=== PATIENT | male | born 1950 | race Caucasian/White ===

== ENCOUNTER 2017-07-24 11:52 | Emergency (ER) | payer OTHER ==
[2017-07-24] MEDS ORDERED: ASPIRIN CHEW 81 MG TABLET ONE (13:10)
--- NOTE | 2017-07-24 15:06 | XRAY Preliminary Report ---
Exam: XR HIP W/PELVIS 2-3V RT IMPRESSION: No acute bony abnormality. [facility] SITE ID: [id number]
--- NOTE | 2017-07-24 15:12 | XRAY Report ---
EXAM: RIGHT HIP AND PELVIS RADIOGRAPHY EXAM DATE: 07/24/2017 02:11 PM. HISTORY: Pain right hip after falling. COMPARISONS: 02/20/2014. TECHNIQUE: 2 views of the pelvis and 1 view of the hip. FINDINGS: Bones: Normal. No fracture or bone lesion. Joints: Remote ORIF of a right subcapital fracture. Remote reconstruction of the right ischium and ac etabulum. Surgical hardware intact without migration. Mild degenerative changes both hips. Moderate to marked degenerative disk disease L4-L5 and L5-S1. Normal sacroiliac joints. Soft Tissues: Normal. No soft tissue swelling. IMPRESSION: No acute bony abnormality. [facility] Referring Provider Line: [phone] SITE ID: [id number]
--- NOTE | 2017-07-24 15:41 | ED Physician Documentation ---
PD HPI LOWER EXT INJURY - Stated complaint Stated Complaint: LOWER BACK/HIP PX - Chief complaint Chief Complaint: Ext Problem - History obtained from History obtained from: Patient - History of Present Illness PD HPI LOW EXT INJURY LOCATION: Right, Hip Type of injury: Fall Where injury occurred: Home Timing - onset: How many weeks ago (2 or 3) Associated symptoms: No: Weakness, Numbness, Swelling Similar symptoms before: Diagnosis (Prior h/o right hip fx x 2; S/P ORIF) - Additional information Additional information: The patient is a 66-year-old male who presents with pain in his right hip. He fell 2 or 3 weeks ago when he slipped on the floor, impacting his right hip. He has had right hip discomfort since that time. He underwent chiropractic adjustment, with no significant improvement. His pain became worse yesterday after moving 5 gallon jugs of water. He also complains of pain in his lower back. He has a history of right hip fracture and pelvic fracture for which he is status post ORIF. He also is status post ORIF of a right femoral neck fracture more recently. Review of systems is otherwise negative. Review of Systems Constitutional: denies: Fever Nose: denies: Congestion Throat: denies: Sore throat Cardiac: denies: Chest pain / pressure Respiratory: denies: Dyspnea, Cough GI: denies: Abdominal Pain, Nausea, Vomiting : denies: Dysuria Skin: denies: Rash Musculoskeletal: reports: Back pain (lower back.), Joint pain (right hip.). denies: Extremity swelling Neurologic: denies: Focal weakness, Numbness, Headache PD PAST MEDICAL HISTORY - Past Medical History Past Medical History: Yes Cardiovascular: None Respiratory: Pneumonia, Shortness of breath, Other Neuro: Head injury Endocrine/Autoimmune: HyPOthyroidism Psych: Anxiety Musculoskeletal: Other - Past Surgical History Past Surgical History: Yes General: Appendectomy Ortho: Other (ORIF right femoral neck fracture; ORIF right pelvic acetabular fracture.) Neuro: Other HEENT: Rhinoplasty - Present Medications Home Medications: Ambulatory Orders Medication Instructions Recorded Confirmed Levothyroxine Sodium 1 tab PO DAILY 07/24/17 07/24/17 Prazosin HCl 1 tab PO DAILY 07/24/17 07/24/17 Sertraline HCl 1 tab PO DAILY 07/24/17 07/24/17 - Allergies Allergies/Adverse Reactions: Allergies Allergy/AdvReac Type Severity Reaction Status Date / Time No Known Drug Allergies Allergy Verified 07/24/17 13:28 - Social History Does the pt smoke?: No Smoking Status: Never smoker Does the pt drink ETOH?: No Does the pt have substance abuse?: No - Immunizations Immunizations are current?: Yes Immunizations: TDAP current <10years - POLST Patient has POLST: No PD ED PE NORMAL - Vitals Vital signs reviewed: Yes (normal) - General General: Alert and oriented X 3, Well developed/nourished, Other (Ambulates without assistance.) - HEENT HEENT: Atraumatic - Neck Neck: No bony TTP - Cardiac Cardiac: RRR, No murmur - Respiratory Respiratory: No respiratory distress, Clear bilaterally - Abdomen Abdomen: Soft, Non tender - Back Back: No CVA TTP, No spinal TTP, Other (There is mild tenderness to palpation in the right paralumbar region, without tenderness over the spinous processes.) - Derm Derm: No rash - Extremities Extremities: No edema, No calf tenderness / cord, Other (The patient demonstrates flexion at the hip to 70, and full extension. Internal and external rotation are tolerated with only mild discomfort. There is no deformity, and no ecchymosis. Distal neurovascular is intact. He is able to bear weight and ambulate.) - Neuro Neuro: Alert and oriented X 3, No motor deficit, No sensory deficit Results - Vitals Vitals: Oxygen O2 Source [With Activity] Room air O2 Source [Without Activity] Room air O2 Source Room air - Rads (name of study) Right hip/pelvis Radiology: Prelim report reviewed, EMP read contemporaneously, See rad report ( No acute bony abnormality. Remote ORIF of a right subcapital fracture. Remote reconstruction of the right ischium and acetabulum. Surgical hardware intact without migration. Mild degenerative changes of both hips. Moderate to marked degenerative disc disease L4-L5 and L5-S1. Normal sacroiliac joints.) PD MEDICAL DECISION MAKING - ED course Complexity details: reviewed old records, reviewed results, re-evaluated patient , considered differential, d/w patient, d/w family ED course: The patient's presentation is significant for contusion of the right hip secondary to mechanical fall. There is no evidence of fracture on x-ray examination. I discussed with him and his daughters the results of the imaging study, symptomatic treatment and outpatient follow-up, as well as potentially worrisome signs or symptoms that should prompt reevaluation in the emergency department. Departure - Departure Disposition: 01 Home, Self Care Clinical Impression: H/O fracture of right hip Fall Qualifiers: Encounter type: initial encounter Qualified Code(s): W19.XXXA - Unspecified fall, initial encounter Contusion of right hip Qualifiers: Encounter type: initial encounter Qualified Code(s): S70.01XA - Contusion of right hip, initial encounter Condition: Stable Instructions: ED Contusion Hip Follow-Up: [facility] [Provider Group] Comments: You can use Tylenol, up to 650 mg 3 times daily if needed for pain or discomfort. Let pain be your guide to activity level. Follow up with your primary physician within 2 weeks. Call to schedule appointment. Return to the emergency department if you develop increasing pain, or otherwise worsening symptoms. Discharge Date/Time: 07/24/17 15:55
[2017-07-24 16:06] VITALS: BP 101/58
== END 2017-07-24 15:55 | disposition home or self-care (01) ==
LOC: ED 11:52
DX: S70.01XA Contusion of right hip, initial encounter (principal); W01.0XXA Fall on same level from slipping, tripping and stumbling without subsequent striking against object, initial encounter; Y92.019 Unspecified place in single-family (private) house as the place of occurrence of the external cause; E03.9 Hypothyroidism, unspecified
CPT/HCPCS: 99283

== ENCOUNTER 2017-12-01 13:38 | Outpatient (CLI) | payer OTHER | END 2017-12-01 13:39 | disposition critical access hospital (66) | LOC: EMS 13:38 | PROVIDERS: ATTEND Surgery | DX: R55 Syncope and collapse (principal) | CPT/HCPCS: A0425; A0427 ==

== ENCOUNTER 2017-12-01 14:06 | Emergency (ER) | payer OTHER ==
--- NOTE | 2017-12-01 14:41 | ED Physician Documentation ---
PD HPI SYNCOPE - Stated complaint Stated Complaint: SYNCOPE - Chief complaint Chief Complaint: General - History obtained from History obtained from: Patient - History of Present Illness Witnessed: Witnessed (He did very hard [employer] workout yesterday and felt like he did not drink any fluids afterwards or this morning. He was working hard getting parts for a project. Mcmillan lightheaded at 1330 and off balance. Per friend he then syncopized multiple times.There is no associated chest pain or trouble breathing. He feels back to normal on my examination.) Review of Systems Ten Systems: 10 systems reviewed and negative Constitutional: denies: Fever, Chills Cardiac: denies: Chest pain / pressure, Palpitations Respiratory: denies: Dyspnea, Cough GI: denies: Abdominal Pain PD PAST MEDICAL HISTORY - Past Medical History Past Medical History: Yes Cardiovascular: None Respiratory: Pneumonia, Shortness of breath, Other Endocrine/Autoimmune: HyPOthyroidism Psych: Anxiety Musculoskeletal: Other - Past Surgical History Past Surgical History: Yes General: Appendectomy Ortho: Other Neuro: Other HEENT: Rhinoplasty - Present Medications Home Medications: Ambulatory Orders Medication Instructions Recorded Confirmed Levothyroxine Sodium 1 tab PO DAILY 07/24/17 07/24/17 Prazosin HCl 1 tab PO DAILY 07/24/17 07/24/17 Sertraline HCl 1 tab PO DAILY 07/24/17 07/24/17 - Allergies Allergies/Adverse Reactions: Allergies Allergy/AdvReac Type Severity Reaction Status Date / Time No Known Drug Allergies Allergy Verified 07/24/17 13:28 - Social History Does the pt smoke?: No Smoking Status: Never smoker Does the pt drink ETOH?: No Does the pt have substance abuse?: No - Immunizations Immunizations are current?: Yes Immunizations: TDAP current <10years - POLST Patient has POLST: No PD ED PE NORMAL - Vitals Vital signs reviewed: Yes - General General: Alert and oriented X 3, No acute distress - HEENT HEENT: PERRL, EOMI, Ears normal, Moist mucous membranes, Pharynx benign - Neck Neck: Supple, no meningeal sign, No bony TTP - Cardiac Cardiac: RRR, No murmur - Respiratory Respiratory: No respiratory distress, Clear bilaterally - Abdomen Abdomen: Normal bowel sounds, Soft, Non tender - Back Back: No CVA TTP, No spinal TTP - Derm Derm: Normal color, Warm and dry - Extremities Extremities: No edema, No calf tenderness / cord - Neuro Neuro: Alert and oriented X 3, Normal speech, Other (NIHSS zero.) Eye Opening: Spontaneous Motor: Obeys Commands Verbal: Oriented GCS Score: 15 - Psych Psych: Normal mood, Normal affect Results - Vitals Vitals: Vital Signs - 24 hr 12/01/17 12/01/17 14:19 15:30 Temperature 36.4 C L 36.5 C Heart Rate 61 59 L Respiratory 16 23 Rate Blood Pressure 100/75 124/76 O2 Saturation 100 100 Oxygen O2 Source [] Room air O2 Source [] Room air O2 Source Room air - EKG (time done) 1444 Rate: Rate (enter#) (55) Rhythm: NSR [place]: Normal Intervals: Normal [place] QRS: Normal Ischemia: Normal ST segments Computer interpretation: Agree with computer - Labs Labs: Laboratory Tests 12/01/17 12/01/17 12/01/17 14:58 14:58 14:58 WBC 6.0 RBC 4.27 L Hgb 14.3 Hct 41.0 L MCV 96.1 H MCH 33.5 H MCHC 34.9 RDW 13.3 Plt Count 219 MPV 7.4 Neut # 4.6 Lymph # 0.8 L [place] # 0.4 Eos # 0.1 Baso # 0.1 Absolute Nucleated RBC 0.00 Nucleated RBC % 0.0 Sodium 137 Potassium 4.0 Chloride 106 Carbon Dioxide 25 Anion Gap 6.0 BUN 22 H Creatinine 0.8 Estimated GFR (MDRD) 96 Glucose 93 Calcium 8.3 L Total Creatine Kinase 398 H Troponin I < 0.04 - Rads (name of study) CT Head Radiology: EMP read contemporaneously (Old findings and chronic sinusitis which is asymptomatic.) PD MEDICAL DECISION MAKING - ED course ED course: 66-year-old gentleman after a heavy workout yesterday and then poor oral fluid intake presents after a premonition all syncopal episode now feeling back to normal. His diagnostics are without acute abnormality in he had a negative stroke scale and normal gait in the department. He very much wanted to be discharged. Departure - Departure Disposition: 01 Home, Self Care Clinical Impression: Syncope and collapse Condition: Good Record reviewed to determine appropriate education?: Yes Instructions: ED Dizziness Syncope Fainting W Pre Comments: Call your doctor to arrange a follow-up appointment, make the next available appointment. In the interim, return anytime if worse or if new symptoms develop.
[2017-12-01] MEDS ORDERED: SODIUM CHLORIDE 0.9% 1,000 ML IV ONE (14:45)
[2017-12-01 15:08] LABS: BASOPHILS # (AUTO) 0.1 10^3/uL (0.0-0.1); BASOPHILS % (AUTO) 1.8 %; EOSINOPHILS # (AUTO) 0.1 10^3/uL (0.0-0.7); EOSINOPHILS % (AUTO) 1.3 %; HGB - HEMOGLOBIN 14.3 g/dL (14.0-18.0); LYMPHOCYTES # (AUTO) 0.8 10^3/uL (1.5-3.5); LYMPHOCYTES % (AUTO) 13.1 %; MEAN CORPUSCULAR HEMOGLOBIN 33.5 pg (27.0-31.0); MEAN CORPUSCULAR HGB CONC 34.9 g/dL (32.0-36.0); MEAN CORPUSCULAR VOLUME 96.1 fL (80.0-94.0); MEAN PLATELET VOLUME 7.4 fL (7.4-11.4); MONOCYTES # (AUTO) 0.4 10^3/uL (0.0-1.0); MONOCYTES % (AUTO) 6.5 %; NEUTROPHILS # (AUTO) 4.6 10^3/uL (1.5-6.6); NEUTROPHILS % (AUTO) 77.3 %; PLT - PLATELET COUNT 219 10^3/uL (130-450); RED BLOOD COUNT 4.27 10^6/uL (4.70-6.10); RED CELL DISTRIBUTION WIDTH 13.3 % (12.0-15.0)
[2017-12-01 15:18] LABS: CALCIUM 8.3 mg/dL (8.5-10.3); CREATININE 0.8 mg/dL (0.6-1.2)
--- NOTE | 2017-12-01 15:30 | CT Preliminary Report ---
Exam: CT HEAD W/O IMPRESSION: 1. No intracranial hemorrhage, mass effect, or current CT evidence of acute CVA. 2. Prior left temporal craniotomy. 3. Increased moderate bilateral ethmoid and left sphenoid sinus mucosal thickening consistent with si nusitis. Mastoids and middle ears are clear. [facility] SITE ID: [id number]
--- NOTE | 2017-12-01 15:30 | CT Report ---
EXAM: CT HEAD EXAM DATE: 12/01/2017 03:20 PM. CLINICAL HISTORY: Syncope off balance. COMPARISON: 02/19/2014. TECHNIQUE: Multiaxial CT images were obtained from the foramen magnum to the vertex. Reformats: Coron al. IV contrast: None. In accordance with CT protocol optimization, one or more of the following dose reduction techniques w ere utilized for this exam: automated exposure control, adjustment of mA and/or KV based on patient s ize, or use of iterative reconstructive technique. FINDINGS: Parenchyma: No intraparenchymal hemorrhage. No evidence of mass, midline shift, or CT findings of inf arction. Escobar-white differentiation is distinct. Extraaxial Spaces: Normal for age. No subdural or epidural collections identified. Ventricles: Normal in size and position. Sinuses and Orbits: Moderate bilateral maxillary and left sphenoid sinus mucosal thickening, increase d. The other visualized paranasal sinuses are essentially clear as are mastoids and middle ears. Bones: Prior left temporal craniotomy, as before. Other: Mild calcification in bilateral cavernous internal carotid arteries and proximal intracranial left vertebral artery. IMPRESSION: 1. No intracranial hemorrhage, mass effect, or current CT evidence of acute CVA. 2. Prior left temporal craniotomy. 3. Increased moderate bilateral ethmoid and left sphenoid sinus mucosal thickening consistent with si nusitis. Mastoids and middle ears are clear. [facility] Referring Provider Line: [phone] SITE ID: [id number]
[2017-12-01 15:48] VITALS: BP 104/73
== END 2017-12-01 15:54 | disposition home or self-care (01) ==
LOC: EDUNIT# → ED 14:06
DX: R55 Syncope and collapse (principal); E03.9 Hypothyroidism, unspecified
CPT/HCPCS: 36415; 70450; 80048; 82550; 84484; 85025; 93005; 99283

== ENCOUNTER 2018-10-22 07:05 | Outpatient (CLI) | payer OTHER ==
--- NOTE | 2018-10-22 09:08 | CT Report ---
Reason: CHRONIC MAXILLARY SINUSITIS Procedure Date: 10/22/2018 Accession Number: [id number] / [id number] Procedure: CT - Sinuses CPT Code: FULL RESULT: EXAM: CT SINUS EXAM DATE: 10/22/2018 07:22 AM. HISTORY: Chronic maxillary sinusitis. COMPARISONS: HEAD W/O 12/01/2017 3:13 PM. TECHNIQUE: Routine multi-axial CT imaging performed through the sinuses. Iodinated IV contrast: None. Reconstructions: Multiplanar reformats. In accordance with CT protocol optimization, one or more of the following dose reduction techniques were utilized for this exam: automated exposure control, adjustment of mA and/or KV based on patient size, or use of iterative reconstructive technique. FINDINGS: Frontal: Moderate bilateral frontal mucosal thickening slightly improved compared to prior exam. Ethmoid: Mild right posterior ethmoid mucosal thickening. Ethmoid sinuses otherwise unremarkable. Maxillary: Minimal dependent right maxillary mucosal thickening. Left maxillary sinus is clear. Sphenoid: Right sphenoid sinus is clear. Moderate left sphenoid mucosal thickening slightly improved compared to prior exam. Drainage Pathways: Bilateral infundibula are widely patent following surgery. Patent frontal recesses. Other: No evidence of acute sinusitis. Nasal Cavity: No evidence of septal deviation, polyp or mass. Incidental small left middle turbinate new bullosa which is a common anatomic variant. Osseous Structures: Unremarkable. Orbits: Unremarkable. Other: None. IMPRESSION: 1. Moderate bilateral frontal mucosal thickening slightly improved. 2. Following surgery, both maxillary infundibula are widely patent. Minimal dependent right maxillary mucosal thickening. Left maxillary sinus is clear. 3. Slightly improved moderate left sphenoid mucosal thickening. 4. Otherwise negative exam. [facility]
== END 2018-10-22 07:06 | disposition home or self-care (01) ==
LOC: DI 07:05
PROVIDERS: ATTEND Physician Assistant
DX: J32.0 Chronic maxillary sinusitis (principal)
CPT/HCPCS: 70486

== ENCOUNTER 2018-10-25 07:40 | Outpatient (CLI) | payer OTHER ==
[2018-10-25 14:21] LABS: BASOPHILS # (AUTO) 0.1 10^3/uL (0.0-0.1); BASOPHILS % (AUTO) 1.2 %; EOSINOPHILS # (AUTO) 0.2 10^3/uL (0.0-0.7); EOSINOPHILS % (AUTO) 4.2 %; HGB - HEMOGLOBIN 15.5 g/dL (14.0-18.0); LYMPHOCYTES # (AUTO) 1.2 10^3/uL (1.5-3.5); LYMPHOCYTES % (AUTO) 28.5 %; MEAN CORPUSCULAR HEMOGLOBIN 32.2 pg (27.0-31.0); MEAN CORPUSCULAR HGB CONC 33.4 g/dL (32.0-36.0); MEAN CORPUSCULAR VOLUME 96.5 fL (80.0-94.0); MEAN PLATELET VOLUME 7.8 fL (7.4-11.4); MONOCYTES # (AUTO) 0.4 10^3/uL (0.0-1.0); MONOCYTES % (AUTO) 9.5 %; NEUTROPHILS # (AUTO) 2.4 10^3/uL (1.5-6.6); NEUTROPHILS % (AUTO) 56.6 %; PLT - PLATELET COUNT 243 10^3/uL (130-450); RED BLOOD COUNT 4.82 10^6/uL (4.70-6.10); RED CELL DISTRIBUTION WIDTH 13.5 % (12.0-15.0); WHITE BLOOD COUNT 4.3 x10^3/uL (4.8-10.8)
[2018-10-25 14:46] LABS: ALBUMIN 4.1 g/dL (3.2-5.5); ALBUMIN/GLOBULIN RATIO 1.4 (1.0-2.2); ALKALINE PHOSPHATASE 100 IU/L (42-121); ALT ALANINE AMINOTRANSFERASE 23 IU/L (10-60); AST ASPARTATE AMINOTRANSFERASE 28 IU/L (10-42); BILIRUBIN,TOTAL 0.7 mg/dL (0.2-1.0); BUN - BLOOD UREA NITROGEN 27 mg/dL (6-20); CARBON DIOXIDE - CO2 31 mmol/L (21-32); CHLORIDE 105 mmol/L (101-111); CHOL/HDL RATIO 2.9 (<5.0); CHOLESTEROL 215 mg/dL; CREATININE 0.9 mg/dL (0.6-1.2); GFR - MDRD 84 (>89); GLUCOSE 92 mg/dL (70-100); HDL CHOLESTEROL 74 mg/dL; LDL CHOLESTEROL,CALCULATED 124 mg/dL; LDL/HDL RATIO 1.7 (<3.6); SODIUM 140 mmol/L (135-145); TOTAL PROTEIN 7.1 g/dL (6.7-8.2); VLDL CHOLESTEROL 17 mg/dL
== END 2018-10-25 07:41 | disposition home or self-care (01) ==
LOC: LAB.WCP 07:40
PROVIDERS: ATTEND Physician Assistant
DX: Z00.00 Encounter for general adult medical examination without abnormal findings (principal)
CPT/HCPCS: 36415; 80053; 80061; 83721; 84443; 85025

== ENCOUNTER 2018-11-04 20:01 | Emergency (ER) | payer OTHER ==
[2018-11-04 20:37] VITALS: BP 107/79
== END 2018-11-04 20:53 | disposition left against medical advice (07) ==
LOC: ED 20:01
DX: Z53.21 Procedure and treatment not carried out due to patient leaving prior to being seen by health care provider (principal)

== ENCOUNTER 2018-11-06 07:54 | Emergency (ER) | payer OTHER ==
[2018-11-06] MEDS ORDERED: SODIUM CHLORIDE 0.9% 1,000 ML IV ONE (08:20)
--- NOTE | 2018-11-06 08:26 | ED Physician Documentation ---
History of Present Illness - Stated complaint Stated Complaint: ARIAS/DIZZY - Chief complaint Chief Complaint: Neuro - History obtained from History obtained from: Patient - History of Present Illness Timing: Other (several months ago) Pain level max: 7 Pain level now: 5 Improved by: nothing Worsened by: sinus rinse - Additonal information Additional information: 67-year-old male presents to the emergency department complaining of left-sided facial pain as well as lightheadedness, headaches and dizziness for the past several months. States that he had sinus surgery a few years ago as well as dental tooth extractions. States has had abscesses in the maxilla in the past and that this feels similar. No fevers. He states that 2 days ago he felt the room spinning around him and he was unable to stand up. He also states he has not been eating and drinking much and feels he could be dehydrated. He attempted a sinus nasal rinse but this made the pain worse. Has been seen by ENT approximately a month ago and was seen by an recreation adviser 2 weeks ago but has not started the steroids. Review of Systems Constitutional: denies: Fever, Chills GI: denies: Vomiting, Diarrhea Skin: denies: Rash Musculoskeletal: denies: Neck pain, Back pain Neurologic: denies: Headache PD PAST MEDICAL HISTORY - Past Medical History Cardiovascular: None Respiratory: Pneumonia, Shortness of breath, Other Endocrine/Autoimmune: HyPOthyroidism Psych: Anxiety Musculoskeletal: Other - Past Surgical History Past Surgical History: Yes General: Appendectomy Ortho: Other Neuro: Other HEENT: Rhinoplasty - Present Medications Home Medications: Ambulatory Orders Medication Instructions Recorded Confirmed Levothyroxine Sodium 1 tab PO DAILY 07/24/17 07/24/17 Cholecalciferol [Vitamin D3] 1 cap ORAL DAILY 11/04/18 11/04/18 Meclizine [Antivert] 12.5 - 25 mg PO Q6H PRN #20 tablet 11/06/18 Penicillin V Potassium 500 mg PO Q6HR #40 tablet 11/06/18 - Allergies Allergies/Adverse Reactions: Allergies Allergy/AdvReac Type Severity Reaction Status Date / Time No Known Drug Allergies Allergy Verified 11/06/18 08:08 - Social History Does the pt smoke?: No Smoking Status: Never smoker Does the pt drink ETOH?: No Does the pt have substance abuse?: No - Immunizations Immunizations are current?: Yes Immunizations: TDAP current <10years - POLST Patient has POLST: No PD ED PE NORMAL - Vitals Vital signs reviewed: Yes - General General: Alert and oriented X 3, No acute distress, Well developed/nourished - HEENT HEENT: Atraumatic, PERRL, EOMI, Ears normal, Moist mucous membranes, Other (L upper gums are swollen and TTP, no abscess.) - Neck Neck: Supple, no meningeal sign - Cardiac Cardiac: RRR, Strong equal pulses - Respiratory Respiratory: No respiratory distress, Clear bilaterally - Abdomen Abdomen: Soft, Non tender, Non distended - Back Back: No spinal TTP - Derm Derm: Warm and dry - Neuro Neuro: Alert and oriented X 3, associate professor of surgery 2-12 intact, No motor deficit, No sensory deficit, Normal speech, Other (+ hallpike to the L. Ambulates well. ) - Psych Psych: Normal mood, Normal affect Results - Vitals Vitals: Vital Signs - 24 hr 11/06/18 08:01 Temperature 36.5 C Heart Rate 55 L Respiratory 22 Rate Blood Pressure 112/76 O2 Saturation 97 Oxygen O2 Source [] Room air O2 Source [] Room air O2 Source Room air - EKG (time done) 0803 Rate: Rate (enter#) (57) Rhythm: NSR [place]: Normal Intervals: Normal [place] QRS: Normal Ischemia: Normal ST segments - Labs Labs: Laboratory Tests 11/06/18 11/06/18 11/06/18 08:39 08:40 08:40 WBC 2.9 L RBC 4.60 L Hgb 14.7 Hct 43.7 MCV 95.0 H MCH 32.0 H MCHC 33.7 RDW 13.5 Plt Count 186 MPV 7.7 Neut # (Auto) 1.5 Lymph # (Auto) 0.9 L [place] # (Auto) 0.4 Eos # (Auto) 0.1 Baso # (Auto) 0.0 Absolute Nucleated RBC 0.00 Nucleated RBC % 0.1 Manual Slide Review Indicated RBC Morph Micro Appear 1+ ANISOCYTOSIS ESR Sodium 137 Potassium 3.9 Chloride 101 Carbon Dioxide 26 Anion Gap 10.0 BUN 26 H Creatinine 0.7 Estimated GFR (MDRD) 112 Glucose 98 Calcium 8.8 C-Reactive Protein Urine Color YELLOW Urine Clarity CLEAR Urine pH 5.5 Ur Specific [place] 1.025 Urine Protein NEGATIVE Urine Glucose (UA) NEGATIVE Urine Ketones NEGATIVE Urine Occult Blood NEGATIVE Urine Nitrite NEGATIVE Urine Bilirubin NEGATIVE Urine Urobilinogen 0.2 (NORMAL) Ur Leukocyte Esterase NEGATIVE Ur Microscopic Review NOT INDICATED Urine Culture Comments NOT INDICATED 11/06/18 11/06/18 08:40 08:40 WBC RBC Hgb Hct MCV MCH MCHC RDW Plt Count MPV Neut # (Auto) Lymph # (Auto) [place] # (Auto) Eos # (Auto) Baso # (Auto) Absolute Nucleated RBC Nucleated RBC % Manual Slide Review RBC Morph Micro Appear ESR 1 Sodium Potassium Chloride Carbon Dioxide Anion Gap BUN Creatinine Estimated GFR (MDRD) Glucose Calcium C-Reactive Protein < 1.0 Urine Color Urine Clarity Urine pH Ur Specific [place] Urine Protein Urine Glucose (UA) Urine Ketones Urine Occult Blood Urine Nitrite Urine Bilirubin Urine Urobilinogen Ur Leukocyte Esterase Ur Microscopic Review Urine Culture Comments PD MEDICAL DECISION MAKING - ED course Complexity details: reviewed old records (had a normal sinus CT 10/22/18), reviewed results, re-evaluated patient, considered differential, d/w patient, d/w family ED course: 67-year-old male with what appears to be an episode of vertigo the other day. He also appears to be having irritation from his dentures, possibly ill fitting and may need an adjustment. Will place on penicillin for the gingival infection. He is well-appearing, nontoxic. No neurological deficits. Ambulating well in the emergency department. Patient counseled regarding signs and symptoms for which I believe and urgent re-evaluation would be necessary. Patient with good understanding of and agreement to plan and is comfortable going home at this time This document was made in part using voice recognition software. While efforts are made to proofread this document, sound alike and grammatical errors may occur. Departure - Departure Disposition: 01 Home, Self Care Clinical Impression: Gingivitis, acute, Dehydration, Vertigo Condition: Good Instructions: ED Cavity Dental, ED Vertigo Unspecified Follow-Up: Joanie Copeland PA [Primary Care Provider] - Within 1 week Prescriptions: Penicillin V Potassium 500 mg PO Q6HR #40 tablet Meclizine [Antivert] 12.5 - 25 mg PO Q6H PRN #20 tablet PRN Reason: Vertigo Comments: Take all antibiotics until gone. Return if you worsen. Follow-up with your doctor for further evaluation and care. Your dentures appear to need a new fitting. You should follow-up with your dentist for this. You are also having vertigo, the meclizine should help with this, you can also try maneuvers such as the Maile maneuver to realign the rocks in your ear canal. Do not drive or operate heavy machinery while taking meclizine.
[2018-11-06 08:45] LABS: EOSINOPHILS # (AUTO) 0.1 10^3/uL (0.0-0.7); HGB - HEMOGLOBIN 14.7 g/dL (14.0-18.0); LYMPHOCYTES # (AUTO) 0.9 10^3/uL (1.5-3.5); WHITE BLOOD COUNT 2.9 x10^3/uL (4.8-10.8)
[2018-11-06 08:47] LABS: BILIRUBIN,URINE NEGATIVE (NEGATIVE); GLUCOSE, URINE (UA) NEGATIVE (NEGATIVE); KETONES,URINE (UA) NEGATIVE (NEGATIVE); LEUKOCYTE ESTERASE, URINE NEGATIVE (NEGATIVE); NITRITE,URINE NEGATIVE (NEGATIVE); OCCULT BLOOD,URINE NEGATIVE (NEGATIVE); PH,URINE 5.5 PH (5.0-7.5); PROTEIN,URINE NEGATIVE (NEGATIVE); UROBILINOGEN,URINE 0.2 (NORMAL) E.U./dL (NORMAL)
[2018-11-06 08:48] LABS: BASOPHILS % (AUTO) 0.9 %; EOSINOPHILS % (AUTO) 2.9 %; LYMPHOCYTES % (AUTO) 31.4 %; MEAN CORPUSCULAR HGB CONC 33.7 g/dL (32.0-36.0); MEAN PLATELET VOLUME 7.7 fL (7.4-11.4); MONOCYTES # (AUTO) 0.4 10^3/uL (0.0-1.0); MONOCYTES % (AUTO) 13.6 %; NEUTROPHILS # (AUTO) 1.5 10^3/uL (1.5-6.6); NEUTROPHILS % (AUTO) 51.2 %; PLT - PLATELET COUNT 186 10^3/uL (130-450); RED CELL DISTRIBUTION WIDTH 13.5 % (12.0-15.0)
[2018-11-06 08:53] LABS: CALCIUM 8.8 mg/dL (8.5-10.3); CREATININE 0.7 mg/dL (0.6-1.2)
[2018-11-06 08:53] LABS: CLARITY,URINE CLEAR (CLEAR)
[2018-11-06 09:06] LABS: RBC MORPHOLOGY (MULTIPLE) 1+ ANISOCYTOSIS (NORMAL)
[2018-11-06 10:00] VITALS: BP 108/78
== END 2018-11-06 10:01 | disposition home or self-care (01) ==
LOC: ED 07:54
DX: R42 Dizziness and giddiness (principal); E86.0 Dehydration; K05.00 Acute gingivitis, plaque induced
CPT/HCPCS: 36415; 80048; 81001; 81003; 85025; 85651; 86140; 87086; 93005; 96360; 99284

== ENCOUNTER 2019-03-21 11:51 | Outpatient (CLI) | payer OTHER | END 2019-03-21 11:52 | disposition short-term general hospital (02) | LOC: EMS 11:51 | PROVIDERS: ATTEND Surgery | DX: R07.9 Chest pain, unspecified (principal) | CPT/HCPCS: A0425; A0427; A0888 ==

== ENCOUNTER 2019-04-22 11:32 | Outpatient (CLI) | payer MEDICARE ==
--- NOTE | 2019-04-22 12:32 | CT Report ---
Reason: ACUTE POST TRAUMATIC HEADACHE, ELDERLY FALL Procedure Date: 04/22/2019 Accession Number: [id number] / [id number] Procedure: CT - CERVICAL SPINE WO CPT Code: FULL RESULT: EXAM: CT CERVICAL SPINE WITHOUT CONTRAST DATE: 04/22/2019 12:03 PM. HISTORY: Acute post traumatic headache, elderly fall. Left head vertex trauma with left-sided neck pain. COMPARISONS: HEAD W/O 12/01/2017 3:13 PM CERVICAL SPINE W/O 02/19/2014 7:18 PM HEAD W/O 04/22/2019 11:52 AM. TECHNIQUE: Thin-section axial images were acquired of the cervical spine without contrast. Post-processing: Coronal and sagittal reformats. Other: None. In accordance with CT protocol optimization, one or more of the following dose reduction techniques were utilized for this exam: automated exposure control, adjustment of mA and/or KV based on patient size, or use of iterative reconstructive technique. FINDINGS: Alignment: No scoliosis or spondylolisthesis. Bones: Odontoid is negative for fracture. The atlas is intact. Facet joints, spinous processes and cervical vertebral bodies are negative for fracture. Interspace Levels/Facets: C1-C2: Unremarkable. C2-C3: Posterior 2 mm disk protrusion. Moderate left facet degenerative arthrosis. Negative for spinal canal stenosis or foraminal stenosis. C3-C4: Mild disk degeneration. Posterior 2 mm disk protrusion. Severe left facet joint hypertrophic arthropathy. Mild right foraminal stenosis from Luschka joint degenerative hypertrophy. Moderate left foraminal stenosis from facet hypertrophic arthropathy. Central AP spinal canal diameter is 1.1 cm. C4-C5: Negative for central spinal canal stenosis. Severe left facet hypertrophic arthropathy. Preservation of disk height. The right neural foramen is negative for stenosis. Moderate left foraminal stenosis from facet and Luschka joint degenerative hypertrophy. C5-C6: Severe disk degeneration. Posterior 2 mm disk protrusion osteophyte complex. Moderate right and severe left foraminal stenosis from disk degeneration and Luschka joint hypertrophic spurring. Mild facet joint arthrosis. C6-C7: Negative for spinal canal stenosis. Negative for foraminal stenosis. Mild disk degeneration. Moderate bilateral facet joint arthrosis. C7-T1: Moderate left and severe right facet joint arthrosis. The left neural foramen is negative for stenosis. Moderate right foraminal stenosis from facet hypertrophy. Anterolisthesis 2 mm C7 on T1. Musculature: Normal. No fatty atrophy. Other: The paravertebral and prevertebral soft tissues are unremarkable. The lung apices are clear. Hemorrhage or debris dependent left sphenoid sinus. Soft tissue obliteration of the right sphenoethmoidal recess. IMPRESSION: 1. CT of the spine from the foramen magnum to inferior T2 is negative for fracture. 2. Negative for central spinal canal stenosis and there is degenerative 2 mm anterolisthesis C7 on T1. 3. Severe left C3-C4 and severe left C4-C5 facet hypertrophic arthropathy. 4. Severe disk degeneration C5-C6. 5. Severe left C5-C6, moderate right C5-C6, moderate right C7-T1, moderate left C4-C5 and moderate left C3-C4 foraminal stenosis. 6. Dependent debris left sphenoid sinus from hemorrhage or chronic sinusitis. RADIA
--- NOTE | 2019-04-22 14:59 | CT Report ---
Reason: ACUTE POST TRAUMATIC HEADACHE Procedure Date: 04/22/2019 Accession Number: [id number] / [id number] Procedure: CT - HEAD WO CPT Code: FULL RESULT: EXAM: CT HEAD EXAM DATE: 04/22/2019 12:03 PM. CLINICAL HISTORY: ACUTE POST TRAUMATIC HEADACHE. Head vertex of head. History of subdural hematoma. COMPARISON: HEAD W/O 12/01/2017 3:13 PM. TECHNIQUE: Multiaxial CT images were obtained from the foramen magnum to the vertex. Reformats: Sagittal and coronal. IV contrast: None. In accordance with CT protocol optimization, one or more of the following dose reduction techniques were utilized for this exam: automated exposure control, adjustment of mA and/or KV based on patient size, or use of iterative reconstructive technique. FINDINGS: Parenchyma: No intraparenchymal hemorrhage. No evidence of mass, midline shift, or CT findings of acute infarction. Escobar-white differentiation is distinct. Diffuse chronic microangiopathic white matter changes are evident. Extraaxial Spaces: Normal for age. No subdural or epidural collections identified. Ventricles: The ventricles and cortical sulci are enlarged, consistent with age-related tissue loss. Sinuses and orbits: Foamy secretions within left sphenoid sinus. No significant layering fluid. Bones: No evidence of fracture or calvarial defect. Other: Atherosclerotic arterial calcifications. IMPRESSION: 1. Generalized age-related cortical atrophic changes without evidence of acute intracranial abnormality. RADIA
== END 2019-04-22 11:33 | disposition home or self-care (01) ==
LOC: DI 11:32
PROVIDERS: ATTEND Physician Assistant
DX: G44.319 Acute post-traumatic headache, not intractable (principal); M50.20 Other cervical disc displacement, unspecified cervical region; M47.812 Spondylosis without myelopathy or radiculopathy, cervical region; M50.31 Other cervical disc degeneration, high cervical region; M48.02 Spinal stenosis, cervical region; R29.6 Repeated falls; M43.13 Spondylolisthesis, cervicothoracic region
CPT/HCPCS: 70450; 72125

== ENCOUNTER 2019-10-06 07:19 | Outpatient (CLI) | payer OTHER, MEDICARE ==
[2019-10-06] MEDS ORDERED: IOVERSOL 320 100 ML VIAL IVP ONE ×2 (07:32→10:57)
[2019-10-06] MEDS ORDERED: IOVERSOL 320 50 ML VIAL ONE (07:32)
[2019-10-06 07:50] LABS: CALCIUM 9.2 mg/dL (8.5-10.3); CREATININE 0.9 mg/dL (0.6-1.2)
--- NOTE | 2019-10-06 09:47 | CT Report ---
Reason: ABD PAIN Procedure Date: 10/06/2019 Accession Number: [id number] / [id number] Procedure: CT - Abdomen/Pelvis W CPT Code: Final Report FULL RESULT: EXAM: CT ABDOMEN AND PELVIS EXAM DATE: 10/06/2019 09:13 AM. CLINICAL HISTORY: ABD PAIN. COMPARISONS: ABDOMEN/PELVIS W/ 05/01/2013 9:32 AM CHEST ANGIO 10/04/2013 6:50 PM. TECHNIQUE: Routine helical CT imaging was performed through the abdomen and pelvis. IV contrast: 100 cc Optiray 320. Enteric contrast: Positive. Reconstructions: Coronal and sagittal. In accordance with CT protocol optimization, one or more of the following dose reduction techniques were utilized for this exam: automated exposure control, adjustment of mA and/or KV based on patient size, or use of iterative reconstructive technique. FINDINGS: Lung Bases: Multiple old healed right-sided rib fracture deformities. Similar right basal pleural-parenchymal scarring/atelectasis, subsegmental atelectasis or scarring in the lingula and left lung base. Asymmetric elevation left hemidiaphragm Liver: Normal. No masses. Gallbladder/Bile Ducts: Unremarkable. Spleen: Normal. Pancreas: Normal. Adrenal Glands: Normal. Kidneys: Normal. No masses or hydronephrosis. Peritoneal Cavity/Bowel: No free or free fluid. No mass or acute inflammatory process. Moderate colonic stool. Small bowel is normal caliber with opacification through mid to distal loops. There is moderate gastric distention. Appendix not clearly visualized; no pericecal inflammatory changes are evident. No pathologic lymphadenopathy by CT size criteria. Pelvic Organs: Normal. The bladder and visualized pelvic organs are within normal limits. Vasculature: No aneurysms or other significant abnormality. Bones: Status post right pelvic/acetabular, proximal femoral ORIF. Old healed fracture deformity right ischiopubic ramus. Stable chronic mild L4 compression deformity. Chronic appearing mild L1 compression deformity. No acute fracture or suspicious bony lesion. Other: None. IMPRESSION: 1. No convincing acute abdominopelvic findings. 2. Multiple chronic findings as noted above. RADIA
[2019-10-06] MEDS ORDERED: IOVERSOL 320 50 ML VIAL PO ONE (10:57)
== END 2019-10-06 07:20 | disposition home or self-care (01) ==
LOC: LAB 07:19
PROVIDERS: ATTEND Physician Assistant Medical
DX: R10.9 Unspecified abdominal pain (principal)
CPT/HCPCS: 36415; 74177; 80048; Q9967

== ENCOUNTER 2019-12-27 10:35 | Outpatient (CLI) | payer MEDICARE, OTHER | END 2019-12-27 23:59 | disposition home or self-care (01) | LOC: LAB.WCP 10:35 | PROVIDERS: ATTEND Physician Assistant | DX: E03.9 Hypothyroidism, unspecified (principal) | CPT/HCPCS: 36415; 84443 ==

== ENCOUNTER 2020-01-03 08:14 | Outpatient (CLI) | payer OTHER ==
[2020-01-03 11:57] LABS: BASOPHILS % (AUTO) 0.8 %; EOSINOPHILS # (AUTO) 0.2 10^3/uL (0.0-0.7); EOSINOPHILS % (AUTO) 6.1 %; HGB - HEMOGLOBIN 15.2 g/dL (14.0-18.0); LYMPHOCYTES # (AUTO) 1.6 10^3/uL (1.5-3.5); LYMPHOCYTES % (AUTO) 40.4 %; MEAN CORPUSCULAR HGB CONC 32.5 g/dL (32.0-36.0); MEAN CORPUSCULAR VOLUME 98.5 fL (80.0-94.0); MEAN PLATELET VOLUME 10.2 fL (7.4-11.4); MONOCYTES # (AUTO) 0.4 10^3/uL (0.0-1.0); MONOCYTES % (AUTO) 9.2 %; NEUTROPHILS # (AUTO) 1.7 10^3/uL (1.5-6.6); NEUTROPHILS % (AUTO) 43.2 %; PLT - PLATELET COUNT 223 10^3/uL (130-450); RED BLOOD COUNT 4.75 10^6/uL (4.70-6.10); RED CELL DISTRIBUTION WIDTH 12.9 % (12.0-15.0); WHITE BLOOD COUNT 3.9 x10^3/uL (4.8-10.8)
[2020-01-03 12:16] LABS: CHOL/HDL RATIO 2.5 (<5.0); CHOLESTEROL 232 mg/dL; HDL CHOLESTEROL 91 mg/dL; LDL CHOLESTEROL,CALCULATED 131 mg/dL; LDL/HDL RATIO 1.4 (<3.6); VLDL CHOLESTEROL 10 mg/dL
== END 2020-01-03 23:59 | disposition home or self-care (01) ==
LOC: LAB.WCP 08:14
PROVIDERS: ATTEND Physician Assistant
DX: R10.9 Unspecified abdominal pain (principal); G44.319 Acute post-traumatic headache, not intractable; Z13.220 Encounter for screening for lipoid disorders
CPT/HCPCS: 36415; 80061; 83721; 85025

== ENCOUNTER 2020-01-18 12:29 | Outpatient (CLI) | payer OTHER | END 2020-01-18 12:30 | disposition critical access hospital (66) | LOC: EMS 12:29 | PROVIDERS: ATTEND Surgery | DX: R55 Syncope and collapse (principal) | CPT/HCPCS: A0425; A0429 ==

== ENCOUNTER 2020-01-18 12:50 | Emergency (ER) | payer OTHER ==
--- NOTE | 2020-01-18 13:12 | ED Physician Documentation ---
PD HPI SYNCOPE - Stated complaint Stated Complaint: SYNCOPE - Chief complaint Chief Complaint: Cardiac - History obtained from History obtained from: Patient - History of Present Illness Witnessed: Witnessed Timing - onset: Today Duration: Seconds Preceding symptoms: Vision changes, Other (pain from a procedure) Associated symptoms: Vision changes. No: Seizure, Incontinant of urine, Incontinant of stool, Headache Contributing factors: Noxious stimulae Injury occurred: None Similar symptoms before: Has not had sx before Recently seen: Clinic - Additional information Additional information: 69-year-old male was in his doctor's office today getting his finger sewn up the sutures apparently hurt quite badly and the patient had a syncopal episode. His primary care doctor Dr. Echevarria is asked that we evaluate the patient for syncope. 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 Review of Systems Eyes: denies: Decreased vision Ears: denies: Ear pain Nose: denies: Congestion Throat: denies: Sore throat Cardiac: denies: Chest pain / pressure, Palpitations Respiratory: denies: Dyspnea, Cough GI: denies: Nausea, Vomiting : denies: Dysuria, Frequency Skin: reports: Laceration (s). denies: Rash Musculoskeletal: denies: Neck pain, Back pain, Extremity pain Neurologic: denies: Generalized weakness, Focal weakness, Numbness PD PAST MEDICAL HISTORY - Past Medical History Past Medical History: Yes Cardiovascular: None Respiratory: Pneumonia, Shortness of breath, Other Endocrine/Autoimmune: HyPOthyroidism Psych: Anxiety Musculoskeletal: Other - Past Surgical History Past Surgical History: Yes General: Appendectomy Ortho: Other Neuro: Other HEENT: Rhinoplasty - Present Medications Home Medications: Ambulatory Orders Medication Instructions Recorded Confirmed Levothyroxine Sodium 1 tab PO DAILY 07/24/17 07/24/17 Cholecalciferol [Vitamin D3] 1 cap ORAL DAILY 11/04/18 11/04/18 Meclizine [Antivert] 12.5 - 25 mg PO Q6H PRN #20 tablet 11/06/18 Penicillin V Potassium 500 mg PO Q6HR #40 tablet 11/06/18 - Allergies Allergies/Adverse Reactions: Allergies Allergy/AdvReac Type Severity Reaction Status Date / Time No Known Drug Allergies Allergy Verified 01/18/20 12:59 - Social History Does the pt smoke?: No Smoking Status: Never smoker Does the pt drink ETOH?: No Does the pt have substance abuse?: No - Immunizations Immunizations are current?: Yes Immunizations: TDAP current <10years - POLST Patient has POLST: No PD ED PE NORMAL - Vitals Vital signs reviewed: Yes (normal ) - General General: No acute distress, Well developed/nourished - HEENT HEENT: Atraumatic, PERRL, EOMI - Neck Neck: Supple, no meningeal sign, No bony TTP - Cardiac Cardiac: RRR, No murmur - Respiratory Respiratory: No respiratory distress, Clear bilaterally - Abdomen Abdomen: Normal bowel sounds, Soft, Non tender, Non distended, No organomegaly - Back Back: No CVA TTP, No spinal TTP - Derm Derm: Normal color, Warm and dry, No rash - Extremities Extremities: No deformity, No edema, No calf tenderness / cord, Other (right middle finger is bandaged) - Neuro Neuro: snagger 2-12 intact, No motor deficit, No sensory deficit, Normal speech Eye Opening: Spontaneous Motor: Obeys Commands Verbal: Oriented GCS Score: 15 - Psych Psych: Normal mood, Normal affect Results - Vitals Vitals: Vital Signs - 24 hr 01/18/20 12:56 Temperature 36.4 C L Heart Rate 61 Respiratory 12 Rate Blood Pressure 111/71 O2 Saturation 99 Oxygen O2 Source [] Room air O2 Source [] Room air O2 Source Room air - Labs Labs: Laboratory Tests 01/18/20 01/18/20 01/18/20 13:19 13:19 13:19 WBC 4.0 L RBC 4.43 L Hgb 14.8 Hct 43.2 MCV 97.5 H MCH 33.4 H MCHC 34.3 RDW 12.6 Plt Count 180 MPV 9.5 Neut # (Auto) 2.7 Lymph # (Auto) 0.8 L [place] # (Auto) 0.3 Eos # (Auto) 0.1 Baso # (Auto) 0.0 Absolute Nucleated RBC 0.00 Nucleated RBC % 0.0 Sodium 140 Potassium 4.1 Chloride 107 Carbon Dioxide 26 Anion Gap 7.0 BUN 20 Creatinine 0.9 Estimated GFR (MDRD) 83 L Glucose 107 H Calcium 8.7 Total Bilirubin 0.8 AST 26 ALT 23 Alkaline Phosphatase 82 Troponin I High Sens 2.7 Total Protein 6.9 Albumin 4.5 Globulin 2.4 Albumin/Globulin Ratio 1.9 Lipase 178 H - Rads (name of study) chest Radiology: Prelim report reviewed (Impression: Chronic appearing right posterior lateral fifth through eighth rib fractures with adjacent chronic appearing right mid to lower lung field pleural thickening and atelectasis. No pleural effusion or pneumothorax.), EMP read indepedently, See rad report Procedures - IVC sono (time) 1304 Bedside IVC sono: IVC measures (cm) (1.52), IVC collapsed c insp (cm) (0.73), Euvolemia PD MEDICAL DECISION MAKING - ED course Complexity details: reviewed old records, reviewed results, re-evaluated patient, considered differential, d/w patient ED course: 69-year-old male with a vasovagal syncopal episode while getting his finger stitched has no other specific findings on evaluation for syncope. His electrocardiogram is normal-appearing his chest x-ray shows old rib fractures, his IVC is normal caliper and collapses normally indicating normal volume and his blood work is unremarkable. He does not have situs inversus. He is discharged to home to follow-up with his primary for suture removal when indicated Departure - Departure Disposition: Home, Self Care Clinical Impression: Vasovagal syncope Condition: Stable Instructions: ED Syncope Vasovagal Follow-Up: Joanie Copeland PA [Primary Care Provider] -
[2020-01-18 13:28] LABS: BASOPHILS % (AUTO) 0.5 %; EOSINOPHILS # (AUTO) 0.1 10^3/uL (0.0-0.7); EOSINOPHILS % (AUTO) 2.8 %; HGB - HEMOGLOBIN 14.8 g/dL (14.0-18.0); LYMPHOCYTES # (AUTO) 0.8 10^3/uL (1.5-3.5); LYMPHOCYTES % (AUTO) 21.2 %; MEAN CORPUSCULAR HEMOGLOBIN 33.4 pg (27.0-31.0); MEAN CORPUSCULAR HGB CONC 34.3 g/dL (32.0-36.0); MEAN CORPUSCULAR VOLUME 97.5 fL (80.0-94.0); MEAN PLATELET VOLUME 9.5 fL (7.4-11.4); MONOCYTES # (AUTO) 0.3 10^3/uL (0.0-1.0); MONOCYTES % (AUTO) 8.3 %; NEUTROPHILS # (AUTO) 2.7 10^3/uL (1.5-6.6); NEUTROPHILS % (AUTO) 67.2 %; PLT - PLATELET COUNT 180 10^3/uL (130-450); RED BLOOD COUNT 4.43 10^6/uL (4.70-6.10); RED CELL DISTRIBUTION WIDTH 12.6 % (12.0-15.0)
[2020-01-18 13:42] LABS: ALBUMIN 4.5 g/dL (3.2-5.5); ALBUMIN/GLOBULIN RATIO 1.9 (1.0-2.2); BILIRUBIN,TOTAL 0.8 mg/dL (0.2-1.0); CALCIUM 8.7 mg/dL (8.5-10.3); CREATININE 0.9 mg/dL (0.6-1.2); TOTAL PROTEIN 6.9 g/dL (6.7-8.2)
--- NOTE | 2020-01-18 14:04 | XRAY Report ---
PROCEDURE: Chest 1 View X-Ray INDICATIONS: syncope TECHNIQUE: One view of the chest was acquired. COMPARISON: 02/19/2014 FINDINGS: Surgical changes and devices: None. Lungs and pleura: No pleural effusions or pneumothorax. Scarring/pleural thickening in lateral perip tao of right mid to lower lung field is again seen, not significantly changed from prior studies. Le ft basilar scarring/atelectasis is seen. Mediastinum: Mediastinal contours appear normal. Heart size is normal. Bones and chest wall: Chronic appearing deformity involving right posterior lateral fifth through ei ghth ribs are seen. No definite acute rib fracture. No suspicious bony lesions. Overlying soft tissu es appear unremarkable. IMPRESSION: Chronic appearing right posterior lateral fifth through eighth rib fractures with adjacent chronic ap pearing right mid to lower lung field pleural thickening and atelectasis. No pleural effusion or pneu mothorax. Reviewed by: Stalin Cabello MD on 01/18/2020 2:03 PM PDT Approved by: Stalin Cabello MD on 01/18/2020 2:03 PM PDT Station ID: [id number]
[2020-01-18 14:41] VITALS: BP 115/75
== END 2020-01-18 14:41 | disposition home or self-care (01) ==
LOC: EDUNIT# → ED 12:50
DX: R55 Syncope and collapse (principal); Z87.820 Personal history of traumatic brain injury
CPT/HCPCS: 36415; 71045; 80053; 83690; 84484; 85025; 93005; 99283; 99284

== ENCOUNTER 2020-01-19 08:00 | Outpatient (CLI) | payer OTHER ==
[2020-01-19 12:33] LABS: FREE T3 2.46 pg/mL (2.5-3.9)
[2020-01-19 12:34] LABS: FREE T4 (FREE THYROXINE) 0.66 ng/dL (0.58-1.64)
== END 2020-01-19 23:59 | disposition home or self-care (01) ==
LOC: LAB.WCP 08:00
PROVIDERS: ATTEND Physician Assistant
DX: E03.9 Hypothyroidism, unspecified (principal)
CPT/HCPCS: 36415; 84439; 84481

== ENCOUNTER 2020-02-28 08:09 | Outpatient (CLI) | payer OTHER ==
[2020-02-28 12:09] LABS: THYROID STIMULATING HORMONE 2.36 uIU/mL (0.34-5.60)
[2020-02-28 12:10] LABS: FREE T3 2.81 pg/mL (2.5-3.9)
[2020-02-28 12:11] LABS: FREE T4 (FREE THYROXINE) 1.06 ng/dL (0.58-1.64)
== END 2020-02-28 23:59 | disposition home or self-care (01) ==
LOC: LAB.WCP 08:09
PROVIDERS: ATTEND Physician Assistant
DX: E03.9 Hypothyroidism, unspecified (principal)
CPT/HCPCS: 36415; 84439; 84443; 84481

== ENCOUNTER 2020-04-06 08:50 | Outpatient (CLI) | payer OTHER ==
[2020-04-06 12:32] LABS: THYROID STIMULATING HORMONE 3.52 uIU/mL (0.34-5.60)
[2020-04-06 12:33] LABS: FREE T3 2.89 pg/mL (2.5-3.9)
[2020-04-06 12:34] LABS: FREE T4 (FREE THYROXINE) 0.61 ng/dL (0.58-1.64)
== END 2020-04-06 23:59 | disposition home or self-care (01) ==
LOC: LAB.WCP 08:50
PROVIDERS: ATTEND Physician Assistant
DX: E03.9 Hypothyroidism, unspecified (principal)
CPT/HCPCS: 36415; 84439; 84443; 84481

== ENCOUNTER 2020-05-10 08:36 | Outpatient (CLI) | payer OTHER ==
[2020-05-11 11:53] LABS: THYROID STIMULATING HORMONE 3.18 uIU/mL (0.34-5.60)
[2020-05-11 11:54] LABS: FREE T3 3.1 pg/mL (2.5-3.9)
[2020-05-11 11:55] LABS: FREE T4 (FREE THYROXINE) 0.95 ng/dL (0.58-1.64)
== END 2020-05-10 23:59 | disposition home or self-care (01) ==
LOC: LAB.WCP 08:36
PROVIDERS: ATTEND Physician Assistant
DX: E03.9 Hypothyroidism, unspecified (principal)
CPT/HCPCS: 36415; 84439; 84443; 84481

== ENCOUNTER → 2020-05-11 | Outpatient (CLI) | payer OTHER ==
[2020-06-26 16:06] LABS: FREE T3 3.1 pg/mL (2.5-3.9); FREE T4 (FREE THYROXINE) 0.95 ng/dL (0.58-1.64); THYROID STIMULATING HORMONE 3.18 uIU/mL (0.34-5.60)
== END ==
LOC: LAB.WCP 08:36
PROVIDERS: ATTEND Physician Assistant
DX: E03.9 Hypothyroidism, unspecified (principal)
CPT/HCPCS: 36415; 84439; 84443; 84481

== ENCOUNTER 2020-06-21 08:00 | Outpatient (CLI) | payer OTHER ==
[2020-06-21 12:56] LABS: THYROID STIMULATING HORMONE 3.07 uIU/mL (0.34-5.60)
[2020-06-21 12:59] LABS: FREE T3 3.05 pg/mL (2.5-3.9)
[2020-06-21 13:00] LABS: FREE T4 (FREE THYROXINE) 0.97 ng/dL (0.58-1.64)
== END 2020-06-21 08:01 | disposition home or self-care (01) ==
LOC: LAB.WCP 08:00
PROVIDERS: ATTEND Internal Medicine
DX: E03.9 Hypothyroidism, unspecified (principal)
CPT/HCPCS: 36415; 84439; 84443; 84481

== ENCOUNTER 2020-06-30 12:52 | Outpatient (CLI) | payer OTHER ==
--- NOTE | 2020-06-30 16:29 | Ultrasound Report ---
PROCEDURE: Head or Neck Soft Tissue INDICATIONS: THYROMEGALY TECHNIQUE: Real time scanning was performed of the neck region of interest, with image documentation . COMPARISON: None. FINDINGS: The right thyroid measures 4.4 x 1.4 x 1.3 cm. The left thyroid measures 3.9 x 1.2 x 0.8 cm. The thyroid isthmus measures 2 mm in thickness. Within the mid right thyroid, there is a 5 x 3 x 6 mm solid hypoechoic smoothly marginated nodule hayde t is wider than tall. No calcifications can be seen. IMPRESSION: Normal-sized thyroid. 6 mm right thyroid nodule. By published criteria, specific imaging follow-up is recommended. Reviewed by: Jake Matt MD on 06/30/2020 3:28 PM [place] Approved by: Jake Matt MD on 06/30/2020 3:28 PM [facility] Station ID: [id number]
== END 2020-06-30 12:53 | disposition home or self-care (01) ==
LOC: DI 12:52
PROVIDERS: ATTEND Physician Assistant
DX: E04.1 Nontoxic single thyroid nodule (principal)

== ENCOUNTER 2020-10-01 16:36 | Outpatient (CLI) | payer OTHER | END 2020-10-01 16:37 | disposition home or self-care (01) | LOC: COV 16:36 | PROVIDERS: ATTEND Internal Medicine | DX: Z01.812 Encounter for preprocedural laboratory examination (principal); Z20.822 Contact with and (suspected) exposure to COVID-19 ==

== ENCOUNTER 2020-11-09 08:00 | Outpatient (CLI) | payer MEDICARE, OTHER ==
[2020-11-09 12:28] LABS: BASOPHILS % (AUTO) 0.5 %; EOSINOPHILS # (AUTO) 0.1 10^3/uL (0.0-0.7); EOSINOPHILS % (AUTO) 3.8 %; HGB - HEMOGLOBIN 16.1 g/dL (14.0-18.0); LYMPHOCYTES # (AUTO) 1.2 10^3/uL (1.5-3.5); LYMPHOCYTES % (AUTO) 32.9 %; MEAN CORPUSCULAR HGB CONC 33.5 g/dL (32.0-36.0); MEAN CORPUSCULAR VOLUME 98.4 fL (80.0-94.0); MEAN PLATELET VOLUME 10.1 fL (7.4-11.4); MONOCYTES # (AUTO) 0.4 10^3/uL (0.0-1.0); MONOCYTES % (AUTO) 11.1 %; NEUTROPHILS # (AUTO) 1.9 10^3/uL (1.5-6.6); NEUTROPHILS % (AUTO) 51.7 %; PLT - PLATELET COUNT 231 10^3/uL (130-450); RED BLOOD COUNT 4.88 10^6/uL (4.70-6.10); RED CELL DISTRIBUTION WIDTH 13.1 % (12.0-15.0); WHITE BLOOD COUNT 3.7 x10^3/uL (4.8-10.8)
[2020-11-09 13:19] LABS: ALBUMIN 4.3 g/dL (3.2-5.5); ALBUMIN/GLOBULIN RATIO 1.5 (1.0-2.2); ALKALINE PHOSPHATASE 110 IU/L (42-121); ALT ALANINE AMINOTRANSFERASE 25 IU/L (10-60); AST ASPARTATE AMINOTRANSFERASE 31 IU/L (10-42); BILIRUBIN,TOTAL 0.8 mg/dL (0.2-1.0); BUN - BLOOD UREA NITROGEN 18 mg/dL (6-20); CALCIUM 9.2 mg/dL (8.5-10.3); CARBON DIOXIDE - CO2 29 mmol/L (21-32); CHLORIDE 104 mmol/L (101-111); CHOL/HDL RATIO 2.6 (<5.0); CHOLESTEROL 240 mg/dL; CREATININE 0.8 mg/dL (0.6-1.2); GFR - MDRD 95 (>89); GLUCOSE 97 mg/dL (70-100); HDL CHOLESTEROL 94 mg/dL; LDL CHOLESTEROL,CALCULATED 130 mg/dL; LDL/HDL RATIO 1.4 (<3.6); POTASSIUM 4.3 mmol/L (3.5-5.0); SODIUM 142 mmol/L (135-145); TOTAL PROTEIN 7.2 g/dL (6.7-8.2); TRIGLYCERIDES 78 mg/dL; VLDL CHOLESTEROL 16 mg/dL
[2020-11-09 13:24] LABS: THYROID STIMULATING HORMONE 2.99 uIU/mL (0.34-5.60)
[2020-11-10 10:31] LABS: HEPATITIS C ANTIBODY NON-REACTIVE (NON-REACTIVE)
== END 2020-11-09 23:59 | disposition home or self-care (01) ==
LOC: LAB.WCP 08:00
PROVIDERS: ATTEND Internal Medicine
DX: E03.9 Hypothyroidism, unspecified (principal); J38.3 Other diseases of vocal cords; Z12.5 Encounter for screening for malignant neoplasm of prostate; Z11.59 Encounter for screening for other viral diseases
CPT/HCPCS: 36415; 80053; 80061; 84443; 85025; 86803; G0103; 83721; 84153

== ENCOUNTER 2021-02-13 08:38 | Outpatient (CLI) | payer MEDICARE, OTHER ==
[2021-02-13] MEDS ORDERED: IOPAMIDOL-300 100 ML VIAL ONE (09:00)
[2021-02-13] MEDS ORDERED: IOVERSOL 320 50 ML VIAL ONE (09:00)
[2021-02-13] MEDS ORDERED: IOVERSOL 320 50 ML VIAL PO ONE (10:31)
[2021-02-13] MEDS ORDERED: IOPAMIDOL-300 100 ML VIAL IVP ONE (10:32)
--- NOTE | 2021-02-13 12:01 | CT Report ---
PROCEDURE: Abdomen/Pelvis W INDICATIONS: PROSTATE CA CONTRAST: IV CONTRAST: Isovue 300 ml: 100 PO CONTRAST: Optiray 320 ml50 TECHNIQUE: After the administration of oral and intravenous contrast, 5 mm thick sections acquired from the diap hragms to the symphysis. 5 mm thick coronal and sagittal reformats were acquired. For radiation dos e reduction, the following was used: automated exposure control, adjustment of mA and/or kV accordin g to patient size. COMPARISON: CT abdomen pelvis 10/06/2019. FINDINGS: Image quality: Excellent. ABDOMEN: Lung bases: Prior right-sided rib fractures. There is adjacent scarring and atelectasis. Mild atelect asis at the left lung base. No pleural effusion. Heart size is normal. Three-vessel coronary artery c alcifications. Elevation of the left hemidiaphragm. Solid organs: Liver and spleen are normal in size and enhancement. Gallbladder is not significantly distended. Small calcified gallstone. Biliary system is non dilated. Pancreas enhances normally. N o adrenal nodules. Kidneys demonstrate normal size and enhancement, without hydronephrosis. Peritoneum and bowel: Bowel loops demonstrate normal wall thickness and caliber. Somewhat prominent stool the right colon. No free fluid or air. Nodes and vessels: No retroperitoneal or mesenteric adenopathy by size criteria. Aorta and inferior vena cava are normal in size. Miscellaneous: Small fat-containing umbilical hernia. PELVIS: Genitourinary: Suspect layering calcification in the right urinary bladder, (). Miscellaneous: No inguinal hernias or adenopathy. Bones: No suspicious bony lesions. Right hip and pelvis screws. Prior right pelvis and right hip and inferior pubic ramus fractures. Mild L4 compression fracture, unchanged. Multilevel DDD.. IMPRESSION: 1. No sclerotic osseous lesions identified. 2. No enlarged lymph nodes. 3. Prostatomegaly. 4. Suspect small stones within the urinary bladder. 5. Small gallstones. Reviewed by: Torres Arizmendi MD on 02/13/2021 12:00 PM PDT Approved by: Torres Arizmendi MD on 02/13/2021 12:00 PM PDT Station ID: [id number]
--- NOTE | 2021-02-13 13:36 | Nuclear Medicine Report ---
PROCEDURE: Bone Whole Body INDICATIONS: PROSTATE CA RADIOPHARMACEUTICAL: 26.7 mCi Tc-99m MDP IV. TECHNIQUE: Delayed whole-body scintigrams were obtained approximately 3-4 hours after intravenous injection of r adiotracer. Anterior and posterior views were acquired from vertex to feet. Additional left and rig ht oblique views of the were obtained. COMPARISON: None available. FINDINGS: Degenerative uptake of radiotracer at the acromioclavicular joints, knee joints, ankle zulay nts, and first metatarsophalangeal joints. Degenerative uptake of radiotracer within the cervical spi ne. No evidence of metastatic disease. IMPRESSION: Multiple sites of degenerative uptake of radiotracer. No evidence of metastatic disease. Reviewed by: Mercedes Solis MD on 02/13/2021 1:35 PM PDT Approved by: Mercedes Solis MD on 02/13/2021 1:35 PM PDT Station ID: [id number]
== END 2021-02-13 08:39 | disposition home or self-care (01) ==
LOC: DI 08:38
PROVIDERS: ATTEND Urology
DX: C61 Malignant neoplasm of prostate (principal); K80.20 Calculus of gallbladder without cholecystitis without obstruction; M19.011 Primary osteoarthritis, right shoulder; M19.012 Primary osteoarthritis, left shoulder; M17.0 Bilateral primary osteoarthritis of knee; M19.071 Primary osteoarthritis, right ankle and foot; M19.072 Primary osteoarthritis, left ankle and foot; M47.812 Spondylosis without myelopathy or radiculopathy, cervical region
CPT/HCPCS: 74177; 78306; Q9967

== ENCOUNTER 2022-01-02 07:52 | Day surgery (SDC) | payer MEDICARE ==
[~2022-01-02 07:52] MED LIST: BRIMONIDINE 0.2% OPHTH DROPS 5 ML ONE; BSS/LIDOCAINE/EPINEPHRINE 1 ML VIAL ONE; CYCLOPENTOLATE 1% OPHTH DROPS 2 ML ONE; EPINEPHrine 1 MG/ML AMP ONE; KETOROLAC 0.45% OPHTH DROPS ONE; PHENYLEPHRINE 2.5% OPHTH 2 ML DROPS ONE; PROPARACAINE 0.5% OPHTH DROPS 15 ML ONE; TIMOLOL 0.5% OPHTH DROPS ONE; TRIAMCIN/MOXIFLOX OPHTHALMIC 0.6 ML VIAL IO ONE
[2022-01-02] MEDS ORDERED: LACTATED RINGERS 1,000 ML IV ONE (08:01)
[2022-01-02] MEDS ORDERED: MIDAZOLAM 2 MG/2 ML VIAL ONE (09:31)
--- NOTE | 2022-01-02 09:31 | ANESTHESIA ---
Pre-Anesthesia VS, & Labs - Diagnosis L cataract - Procedure L PhacoIOL Vital Signs: Temp Pulse Resp BP Pulse Ox 37 C 66 16 105/68 96 01/02/22 08:02 01/02/22 08:02 01/02/22 08:02 01/02/22 08:02 01/02/22 08:02 Height: 5 ft 10 in Weight (kg): 81.7 kg Body Mass Index: 25.8 BMI Classification: Overweight - NPO >8 hours Home Medications and Allergies Home Medications: Ambulatory Orders Multivitamin 1 each PO DAILY 01/01/22 Phenylephrine/Dm/Acetaminop/GG [Daytime Severe Cold-Flu Liquid] 355 ml PO DAILY 01/01/22 Tamsulosin HCl [Flomax] 0.4 mg PO DAILY 01/01/22 Levothyroxine Sodium 1 tab PO DAILY 07/24/17 Cholecalciferol [Vitamin D3] 1 cap ORAL DAILY 11/04/18 Multivitamin 1 each PO DAILY 01/01/22 Phenylephrine/Dm/Acetaminop/GG [Daytime Severe Cold-Flu Liquid] 355 ml PO DAILY 01/01/22 Tamsulosin HCl [Flomax] 0.4 mg PO DAILY 01/01/22 Allergies/Adverse Reactions: Allergies Allergy/AdvReac Type Severity Reaction Status Date / Time No Known Drug Allergies Allergy Verified 01/18/20 12:59 Anes History & Medical History - Anesthetic History Anesthesia Complications: reports: No previous complications, Other-see comment (pt reports "damage to one of my vocal cords" from a previous intubation at [facility]) Family history of Anesthesia Complications: Denies Family history of Malignant Hyperthermia: Denies - Medical History Cardiovascular: reports: None, Other (previous syncopal episodes, cardiac workup WNL) Pulmonary: reports: Pneumonia, Shortness of breath, Other Urinary: reports: Benign prostate hypertrophy, Frequency Neuro: reports: None Musculoskeletal: reports: Other Endocrine/Autoimmune: reports: HyPOthyroidism Smoking Status: Never smoker - Surgical History General: reports: Appendectomy Eyes Ears Nose Throat (EENT): reports: Rhinoplasty Neurologic: reports: Other Orthopedic: reports: Other Exam General: Alert, Oriented x3, Cooperative Dental: Other (very poor dentition with previous oral abscess (denies currently), eduntulous) Mouth Openin Fingerbreadth Mallampati classification: I Respiratory: Lungs clear Cardiovascular: Regular rate Plan Anesthesia Type: MAC Consent for Procedure(s) Verified and Reviewed: Yes Code Status: Attempt Resuscitation ASA classification: 2-Mild systemic disease Is this case an emergency?: No
[2022-01-02] MEDS ORDERED: BRIMONIDINE 0.2% OPHTH DROPS 5 ML OPTH ONE (09:40)
[2022-01-02] MEDS ORDERED: TRIAMCIN/MOXIFLOX OPHTHALMIC 0.6 ML VIAL IO ONE (09:40)
[2022-01-02] MEDS ORDERED: TIMOLOL 0.5% OPHTH DROPS OPTH ONE (09:40)
[2022-01-02] MEDS ORDERED: BSS/LIDOCAINE/EPINEPHRINE 1 ML SYRINGE IO ONE (09:40)
[2022-01-02] MEDS ORDERED: EPINEPHrine 1 MG/ML AMP IR ONE (09:40)
[2022-01-02] MEDS ORDERED: PROPARACAINE 0.5% OPHTH DROPS 15 ML EACHEYE ONE (09:40)
[2022-01-02] MEDS ORDERED: VANCOMYCIN OPHTH (TOPICAL) 10 MG/ML SYRINGE TOP ONE (09:41)
[2022-01-02] MEDS ORDERED: LACTATED RINGERS 800 ML IV ONE (09:52)
--- NOTE | 2022-01-02 10:00 | OPERATIVE REPORT ---
Operative Report - Other Other Information/Narrative: Date of Surgery: 01/02/22 Preop Dx: Visually significant cataract left eye. This was the first cataract surgery. Postop Dx: Same Procedure: Phacoemulsification with posterior chamber intraocular lens implant left eye Surgeon: Dr. Kyrie Wilson Anesthesia: Monitored anesthesia care Complications: None Operative Indications: This is a 71-year-old M with progressive vision loss in the left eye due to 2+ nuclear sclerotic and 3+ cortical cataract. Best corrected visual acuity was 20/30 with glare to 20/80 vision in the left eye. Indications for surgery were: - Overall decrease in vision - Difficulty seeing words on a computer screen - Difficulty reading - Difficulty seeing words, closed captions, or game scores on TV - Difficulty seeing street signs - Difficulty driving in low light or at night - Difficulty driving at night because of headlights from other vehicles - Difficulty with glare or bright lights in any situation - Difficulty tracking a golf ball - Decreased acuity with firearms The patient was consented at length concerning the risks and benefits of cataract surgery after which the patient expressed a desire to proceed with surgery. Operative Procedure: The patient was taken into OR#3 and placed under monitored anesthesia care. A surgical time-out was conducted confirming correct patient, correct procedure, and correct surgical site. The patient was given topical anesthesia and then prepped and draped in the usual sterile fashion. The eye was entered at the 6 and 3 oclock positions. Intracameral Shugarcaine was injected into the anterior chamber followed by a dispersive viscoelastic. A continuous-tear curvilinear capsulorhexis was performed. The nucleus was hydrodissected and phacoemulsified. The cortex was evacuated using automated infusion and aspiration. A cohesive viscoelastic was injected into the capsular bag and a 20.0 diopter intraocular lens was inserted into the bag. Infusion and aspiration were used to evacuate the viscoelastic materials from the eye. The wo unds were hydrated and the eye inflated to physiologic pressure using balanced salt solution. Approximately 0.25ml of a mixture of triamcinolone and moxifloxacin was injected trans-sclerally into the vitreous in the inferotemporal quadrant using a 30 gauge cannula. An additional 0.55ml of a mixture of triamcinolone and moxifloxacin was injected subconjunctivally in the superior quadrant for infection and inflammation prophylaxis. Wound integrity was checked with Weck-Priyanka sponges. The patient was taken from the operating room in good condition and given post-op instructions.
[2022-01-02 10:07] VITALS: BP 100/56
--- NOTE | 2022-01-02 14:42 | ANESTHESIA POST OP EVALUATION ---
Anesthesia Post Eval - Post Anesthesia Eval Vitals: Last Vital Signs Temp 36.4 C L 01/02/22 10:06 Pulse 60 01/02/22 10:06 Resp 18 01/02/22 10:06 BP 100/56 L 01/02/22 10:06 Pulse Ox 98 01/02/22 10:06 CV Function Including HR & BP: Stable Pain Control: Satisfactory Nausea & Vomiting: Negative Mental Status: Baseline Respiratory Status: Airway Patent Hydration Status: Satisfactory Anesthesia Complications: None
== END 2022-01-02 07:53 | disposition home or self-care (01) ==
LOC: SDS 07:52
PROVIDERS: ATTEND Ophthalmology
DX: H25.812 Combined forms of age-related cataract, left eye (principal)
CPT/HCPCS: 66984; A9270; J3490; J7120

== ENCOUNTER 2022-03-24 10:17 | Emergency (ER) | payer MEDICARE ==
--- NOTE | 2022-03-24 11:57 | XRAY Report ---
PROCEDURE: Hip w/Pelvis 2-3V RT INDICATIONS: fall. pain TECHNIQUE: AP pelvis with lateral view(s) of the right hip(s). COMPARISON: None. FINDINGS: Bones: No acute fractures or dislocations. Prior fixation of right acetabular and right femoral nec k fractures. Intact hardware. Mild symmetric degenerative changes in both femoral acetabular joints. Pelvic ring appears intact. No suspicious bony lesions. Soft tissues: The visualized bowel gas pattern is normal. Fiducial markers in the expected location of the prostate gland. No suspicious soft tissue calcifications. IMPRESSION: 1. No acute fractures. 2. Intact prior right pelvic and hip fixation hardware. Reviewed by: Debi Peters MD on 03/24/2022 11:55 AM PDT Approved by: Debi Peters MD on 03/24/2022 11:55 AM PDT Station ID: [id number]
--- NOTE | 2022-03-24 12:03 | XRAY Report ---
PROCEDURE: Lumbar Spine 2 View INDICATIONS: Fall pain TECHNIQUE: 3 views of the lumbar spine were acquired. COMPARISON: Images are not available. Report available from CT abdomen pelvis 10/06/2019 FINDINGS: Bones: 5 lvv-bkk-ugiicaw vertebrae are present. Mild anterior wedge deformity of L1 and superior end plate scalloping of L4. Mild endplate spurs at multiple levels. Moderate to severe disc height loss L 4-5 and L5-S1. There is normal bony alignment. No acute vertebral body compression fractures. No s uspicious bony lesions. Soft tissues: Overlying bowel gas pattern is normal. No suspicious soft tissue calcifications. IMPRESSION: 1. No acute vertebral body fracture. 2. Reportedly chronic mild vertebral body compression fractures of L1 and L4. 3. Multilevel degenerative disc and endplate change. Reviewed by: Debi Peters MD on 03/24/2022 12:02 PM PDT Approved by: Debi Peters MD on 03/24/2022 12:02 PM PDT Station ID: [id number]
[2022-03-24] MEDS ORDERED: LIDOCAINE PATCH 5% TOP STA (13:21)
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
[2022-03-24 13:38] VITALS: BP 125/87
== END 2022-03-24 13:38 | disposition home or self-care (01) ==
LOC: ED 10:17
DX: S39.92XA Unspecified injury of lower back, initial encounter (principal); X58.XXXA Exposure to other specified factors, initial encounter
CPT/HCPCS: 72100; 73502; 99282; 99284; A9270

== ENCOUNTER 2022-04-03 13:59 | Emergency (ER) | payer MEDICARE ==
[2022-04-03 14:48] LABS: BASOPHILS % (AUTO) 0.7 %; EOSINOPHILS # (AUTO) 0.1 10^3/uL (0.0-0.7); EOSINOPHILS % (AUTO) 2.9 %; HCT - HEMATOCRIT 39.5 % (42.0-52.0); HGB - HEMOGLOBIN 13.5 g/dL (14.0-18.0); LYMPHOCYTES # (AUTO) 0.6 10^3/uL (1.5-3.5); LYMPHOCYTES % (AUTO) 14.8 %; MEAN CORPUSCULAR HEMOGLOBIN 33.4 pg (27.0-31.0); MEAN CORPUSCULAR HGB CONC 34.2 g/dL (32.0-36.0); MEAN CORPUSCULAR VOLUME 97.8 fL (80.0-94.0); MEAN PLATELET VOLUME 8.9 fL (7.4-11.4); MONOCYTES # (AUTO) 0.4 10^3/uL (0.0-1.0); MONOCYTES % (AUTO) 9.3 %; NEUTROPHILS % (AUTO) 72.1 %; PLT - PLATELET COUNT 206 10^3/uL (130-450); RED BLOOD COUNT 4.04 10^6/uL (4.70-6.10); RED CELL DISTRIBUTION WIDTH 12.7 % (12.0-15.0); WHITE BLOOD COUNT 4.2 x10^3/uL (4.8-10.8)
--- NOTE | 2022-04-03 14:55 | ED Physician Documentation ---
History of Present Illness - Stated complaint Stated Complaint: FALL/WEAKNESS - Chief complaint Chief Complaint: Back Pain - Additonal information Additional information: 71-year-old male presents to the emergency department for evaluation of acute low back pain. Patient initially seen in this emergency department about 10 days ago. He was helping his daughter lift a couch when she suddenly dropped her end. He developed a sudden low back pain. He reports that it jolted him. He did come to the ER had negative x-ray imaging. However over the last week he reports that the pain is worsening. He is using crutches to get around but f inds it when he is putting weight on the right leg his legs give out. He is denying any saddle anesthesia loss of bowel or bladder function. He does have a history of prostate cancer. He completed 44 cycles of radiation in early July of this year. He is also taking testosterone timoteo for further management of the prostate cancer. Review of Systems Constitutional: denies: Fever, Chills Eyes: reports: Reviewed and negative Nose: reports: Reviewed and negative Cardiac: reports: Reviewed and negative Respiratory: reports: Reviewed and negative Musculoskeletal: reports: Back pain Neurologic: reports: Reviewed and negative Psychiatric: reports: Reviewed and negative Endocrine: reports: Reviewed and negative PD PAST MEDICAL HISTORY - Past Medical History Cardiovascular: None, Other Respiratory: Pneumonia, Shortness of breath, Other Neuro: None Endocrine/Autoimmune: HyPOthyroidism GI: None : Benign prostate hypertrophy, Frequency Psych: Anxiety Musculoskeletal: Other Derm: None - Past Surgical History Past Surgical History: Yes General: Appendectomy Ortho: Other Neuro: Other HEENT: Cataracts, Rhinoplasty - Present Medications Home Medications: Ambulatory Orders Medication Instructions Recorded Confirmed Levothyroxine Sodium 1 tab PO DAILY 07/24/17 02/13/22 Cholecalciferol [Vitamin D3] 1 cap ORAL DAILY 11/04/18 02/13/22 Multivitamin 1 each PO DAILY 01/01/22 02/13/22 Phenylephrine/Dm/Acetaminop/GG 355 ml PO DAILY 01/01/22 02/13/22 [Daytime Severe Cold-Flu Liquid] Tamsulosin HCl [Flomax] 0.4 mg PO BID 01/01/22 02/13/22 Lidocaine Patch 5% [Lidoderm Patch] 1 patch TOP DAILY PRN #10 patch 03/24/22 oxyCODONE [Roxicodone] 5 mg PO BID PRN #10 tablet 04/03/22 - Allergies Allergies/Adverse Reactions: Allergies Allergy/AdvReac Type Severity Reaction Status Date / Time No Known Drug Allergies Allergy Verified 04/03/22 14:34 - Social History Does the pt smoke?: No Smoking Status: Never smoker Does the pt drink ETOH?: No Does the pt have substance abuse?: No - Immunizations Immunizations are current?: Yes Immunizations: TDAP current <10years - POLST Patient has POLST: No PD ED PE NORMAL - General General: Alert and oriented X 3, No acute distress - HEENT HEENT: Atraumatic, Moist mucous membranes - Neck Neck: Supple, no meningeal sign, No adenopathy - Cardiac Cardiac: RRR, No murmur - Respiratory Respiratory: No respiratory distress, Clear bilaterally - Abdomen Abdomen: Normal bowel sounds, Soft, Non tender - Rectal Rectal: Other (Normal rectal tone/wink. no saddle anesthesia) - Back Back: No spinal TTP (lowr L5/S TTP; no crepitus, deformity/ motor strength 4/5 left leg at hip/knee sexondary to pain. ) - Derm Derm: Normal color, Warm and dry, No rash - Extremities Extremities: No deformity, No tenderness to palpate, Normal ROM s pain - Neuro Neuro: Alert and oriented X 3, pharmacist aide 2-12 intact Eye Opening: Spontaneous Motor: Obeys Commands Verbal: Oriented GCS Score: 15 Results - Vitals Vitals: Vital Signs - 24 hr 04/03/22 04/03/22 14:28 16:08 Temperature 36.8 C Heart Rate 67 Respiratory 17 Rate Blood Pressure 123/77 O2 Saturation 95 100 Oxygen O2 Source [With Activity] Room air O2 Source [Without Activity] Room air O2 Source Room air - Labs Labs: Laboratory Tests 04/03/22 04/03/22 14:40 14:40 WBC 4.2 L RBC 4.04 L Hgb 13.5 L Hct 39.5 L MCV 97.8 H MCH 33.4 H MCHC 34.2 RDW 12.7 Plt Count 206 MPV 8.9 Neut # (Auto) 3.0 Lymph # (Auto) 0.6 L [place] # (Auto) 0.4 Eos # (Auto) 0.1 Baso # (Auto) 0.0 Absolute Nucleated RBC 0.00 Nucleated RBC % 0.0 Sodium 144 Potassium 4.1 Chloride 104 Carbon Dioxide 33 H Anion Gap 7.0 BUN 27 H Creatinine 1.1 Estimated GFR (MDRD) 66 L Glucose 100 Calcium 9.1 Total Bilirubin 0.6 AST 24 ALT 21 Alkaline Phosphatase 137 H Total Protein 6.1 L Albumin 3.3 Globulin 2.8 Albumin/Globulin Ratio 1.2 Lipase 50 - Rads (name of study) CT lumbar Radiology: Final report received (Suggestion of acute nondisplaced fractures involving the bilateral transverse processes of L5. Chronic appearing anterior wedge compression at L1 and L4. No acute vertebral body compression fracture. Degenerative endplate changes and bilateral facet arthrosis throughout the lumbar spine) PD MEDICAL DECISION MAKING - ED course Complexity details: reviewed results, re-evaluated patient, d/w patient ED course: 71-year-old male returns the emergency department for evaluation of worsening low back pain. Injury occurred about 10 days ago when he was helping his daughter move a couch and she dropped her and. He developed a sudden sharp low back pain that has persisted and gotten worse over the last 10 days. Initially seen in the ER with negative lumbar x-ray imaging. He has no saddle anesthesia, loss of bowel or bladder function. He has normal rectal tone/week. Given the age and a remote history of prostate cancer we did do a CT of the lumbar spine. It does show likely nondisplaced fractures involving the bilateral transverse process of L5. Also chronic anterior wedge compression at L1 and L4. Patient was aware of these previous wedge compression injuries. There is extensive arthrosis throughout the lumbar spine causing mild to moderate central canal now stenosis. Here in the emergency department the patient was able to ambulate with his crutches as well as using a hand. There was minimal assistance needed. Labs did not show any worrisome findings. He is scheduled to see his primary care doctor tomorrow and I am encouraging him to request a referral to a back pain specialist. Limited prescription of oxycodone has been sent to the [facility] in [place] I am prescribing a short course of short-acting opioid pain medication for this patient. I have reviewed the patients COAL CAGER and no concerning findings were noted. I have discussed that the opioids are for short term therapy only, and will not be refilled from the ED. Departure - Departure Disposition: 01 Home, Self Care Clinical Impression: Lumbar transverse process fracture Qualifiers: Encounter type: subsequent encounter Fracture type: closed Fracture healing: with routine healing Qualified Code(s): S32.009D - Unspecified fracture of unspecified lumbar vertebra, subsequent encounter for fracture with routine healing Low back pain Qualifiers: Chronicity: chronic Back pain laterality: unspecified Sciatica presence: without sciatica Qualified Code(s): M54.50 - Low back pain, unspecified; G89.29 - Other chronic pain Condition: Stable Record reviewed to determine appropriate education?: Yes Follow-Up: Robbie Haley MD [Primary Care Provider] - Prescriptions: oxyCODONE [Roxicodone] 5 mg PO BID PRN #10 tablet PRN Reason: Pain Comments: Miguel hancock are seen today in the emergency department for persistent pain in your low back after helping move a couch about 10 days ago. We did do a CT of your lumbar spine and it does show bilateral transverse process fractures at the L5 vertebrae. There are also significant degenerative changes within the lumbar spine itself. I encourage you to follow closely with your primary care doctor. You would likely benefit from referral to an orthopedic back surgeon or to a back pain specialist. I prescribing a limited amount of oxycodone for severe pain. Use this cautiously it will make you sleepy and unable to drive. In general you may find benefit from using Salonpas or lidocaine patches for pain. You can use ibuprofen 600 mg with food 2-3 times a day for pain. The oxycodone is for the severe pain. If at any point you find your symptoms worsen, you lose control of your bowel or bladder function, have numbness in your genital area you are to return immediately to the ER. I am prescribing a short course of narcotic pain medication for you. These are potentially dangerous and addictive medications that should be used carefully. These medications may constipate you. Take an hbnm-bpq-tqbnnxy stool softener (docusate) twice daily with plenty of water while taking these medications. If you go 24 hours without a bowel movement, take [id number] miralax, per package instructions. Do not drink or drive while taking these medications. If you received narcotic or sedating medications while in the emergency department, do not drive for 24 hours. Store this medication in a safe, secure place and out of reach of children. It is a violation of federal law to give or sell this medication to another person or to use in a manner other than prescribed. The ED will not refill narcotic prescriptions, including prescriptions lost or stolen. To dispose of unwanted medications: 1. [facility] at [address] in [place] has a medication drop box. They accept prescription medications (in pill form) Thursday through Thursday 9:00 a.m. to 5:00 p.m. 2. The [facility] [employer] accepts prescription medications (in pill form only) for disposal year round. Call for more information. 3. Contact the [facility] for the next [facility] sponsored prescription drug collection event. , [phone], or [phone]; Note that many narcotic pain relievers also contain Tylenol/acetaminophen. Please ensure that your total dose of acetaminophen from all sources does not exceed 3 g (3000 mg) per day.
[2022-04-03 15:01] LABS: ALBUMIN 3.3 g/dL (3.2-5.5); ALBUMIN/GLOBULIN RATIO 1.2 (1.0-2.2); BILIRUBIN,TOTAL 0.6 mg/dL (0.2-1.0); CALCIUM 9.1 mg/dL (8.5-10.3); CREATININE 1.1 mg/dL (0.6-1.2); POTASSIUM 4.1 mmol/L (3.5-5.0); TOTAL PROTEIN 6.1 g/dL (6.7-8.2)
[2022-04-03] MEDS: HYDROmorphone 1 MG/ML CARPUJECT IVP STA (15:41)
--- NOTE | 2022-04-03 17:51 | CT Report ---
PROCEDURE: LUMBAR SPINE WO INDICATIONS: low back pain, leg weakness TECHNIQUE: Noncontrast 3 mm thick sections acquired from the T12 level to the sacrum. Sagittal and coronal refo rmats were constructed. For radiation dose reduction, the following was used: automated exposure co ntrol, adjustment of mA and/or kV according to patient size. COMPARISON: Lumbar spine radiograph dated 03/24/2022. FINDINGS: Image quality: Excellent. Bones: There is normal bony alignment. Acute appearing nondisplaced fractures involving bilateral t ransverse processes of L5 is noted series 4 images 64 and 66. No acute vertebral body compression fra ctures. Chronic appearing superior endplate compression deformity at L4 level is again seen unchanged from prior CT of abdomen and pelvis studies dating back to 10/06/2019. Chronic appearing mild anterior wedge compression deformity at L1 level is also seen, unchanged from prior study. No suspicious lyti c or blastic bony lesions. Central spinal caliber is of normal overall caliber. T12-L1: Loss of disc height and degenerative endplate changes are seen. No significant canal stenosi s or neural foraminal narrowing. L1-L2: Loss of disc height and degenerative endplate changes are noted. Broad-based disc bulge and bilateral facet arthrosis is seen with mild central canal stenosis, no significant neural foraminal narrowing. L2-L3: Broad-based disc bulge is seen with mild central canal stenosis, and left-sided neural fora marie narrowing. Bilateral facet arthrosis is also seen. L3-L4: Degenerative endplate changes are noted. Broad-based disc bulge and bilateral facet arthrosi s is seen with mild central canal stenosis and left worse than right bilateral. L4-L5: Loss of disc height and degenerative endplate changes are noted. Broad-based disc bulge and bilateral facet arthrosis is seen with [id number] central canal stenosis and moderate to severe bilateral neural foraminal. L5-S1: Loss of disc height and degenerative endplate changes are seen. Diffuse disc bulge and bilat eral facet arthrosis is seen with mild central canal stenosis and moderate left worse than right bila teral neural foraminal narrowing. Soft tissues: No retroperitoneal masses or hematomas. Visualized aorta is normal in caliber. IMPRESSION: 1. Suggestion of acute nondisplaced fractures involving bilateral transverse processes of L5. Chronic appearing anterior wedge compression at L1 and L4 levels. No acute vertebral body compression fractu re. 2. Degenerative endplate changes and bilateral facet arthrosis throughout lumbar spine causing mild-t o-moderate central canal stenosis and left worse than right bilateral neural foraminal narrowing as d escribed above. Reviewed by: Stalin Cabello MD on 04/03/2022 5:49 PM PDT Approved by: Stalin Cabello MD on 04/03/2022 5:49 PM PDT Station ID: [id number]
[2022-04-03 18:38] VITALS: BP 134/87
== END 2022-04-03 18:48 | disposition home or self-care (01) ==
LOC: ED 13:59
DX: S32.009A Unspecified fracture of unspecified lumbar vertebra, initial encounter for closed fracture (principal); X50.0XXA Overexertion from strenuous movement or load, initial encounter; Y93.E6 Activity, residential relocation; G89.29 Other chronic pain
CPT/HCPCS: 36415; 72131; 80053; 83690; 85025; 96374; 99284; J1170; 84484

== ENCOUNTER 2022-05-07 03:31 | Outpatient (CLI) | payer MEDICARE | END 2022-05-07 03:32 | disposition critical access hospital (66) | LOC: EMS 03:31 | DX: R55 Syncope and collapse (principal) | CPT/HCPCS: A0425; A0429 ==

== ENCOUNTER 2022-05-07 04:18 | Emergency (ER) | payer MEDICARE ==
[2022-05-07] MEDS ORDERED: SODIUM CHLORIDE 0.9% 1,000 ML IV STA (05:36)
[2022-05-07 05:52] LABS: BASOPHILS % (AUTO) 0.5 %; EOSINOPHILS # (AUTO) 0.2 10^3/uL (0.0-0.7); EOSINOPHILS % (AUTO) 5.6 %; HCT - HEMATOCRIT 40.5 % (42.0-52.0); HGB - HEMOGLOBIN 13.4 g/dL (14.0-18.0); LYMPHOCYTES # (AUTO) 0.7 10^3/uL (1.5-3.5); LYMPHOCYTES % (AUTO) 18.9 %; MEAN CORPUSCULAR HEMOGLOBIN 32.7 pg (27.0-31.0); MEAN CORPUSCULAR HGB CONC 33.1 g/dL (32.0-36.0); MEAN CORPUSCULAR VOLUME 98.8 fL (80.0-94.0); MEAN PLATELET VOLUME 8.8 fL (7.4-11.4); MONOCYTES # (AUTO) 0.4 10^3/uL (0.0-1.0); MONOCYTES % (AUTO) 10.9 %; NEUTROPHILS # (AUTO) 2.4 10^3/uL (1.5-6.6); NEUTROPHILS % (AUTO) 63.8 %; PLT - PLATELET COUNT 248 10^3/uL (130-450); RED CELL DISTRIBUTION WIDTH 12.7 % (12.0-15.0); WHITE BLOOD COUNT 3.8 x10^3/uL (4.8-10.8)
--- NOTE | 2022-05-07 05:57 | ED Physician Documentation ---
PD HPI SYNCOPE - Stated complaint Stated Complaint: SYNCOPE - Chief complaint Chief Complaint: Neuro - History obtained from History obtained from: Patient, Family (daughter Mary) - History of Present Illness Witnessed: Unwitnessed Timing - onset: Today Duration: Unknown Preceding symptoms: Light headed Associated symptoms: No: Seizure, Incontinant of urine, Incontinant of stool, Headache, Chest pain, Nausea / vomiting Contributing factors: Decreased PO intake (daughter states patient becomes dehydrated easily), Just stood up Injury occurred: No: Head injury, Neck injury, Bit tongue Similar symptoms before: Other (has had multiple dizzy spells and syncopal episodes over past couple years) Recently seen: Not recently seen - Treatment prior to arrival Treatment prior to arrival: 100cc NS Review of Systems Ten Systems: 10 systems reviewed and negative Constitutional: denies: Fever, Chills Cardiac: denies: Chest pain / pressure Respiratory: denies: Dyspnea GI: denies: Nausea, Vomiting Neurologic: reports: Syncope PD PAST MEDICAL HISTORY - Past Medical History Past Medical History: Yes Cardiovascular: None, Other Respiratory: Pneumonia, Shortness of breath, Other Neuro: None Endocrine/Autoimmune: HyPOthyroidism GI: None : Benign prostate hypertrophy, Frequency Psych: Anxiety Musculoskeletal: Other Derm: None - Past Surgical History Past Surgical History: Yes General: Appendectomy Ortho: Spine surgery, Other Neuro: Other HEENT: Cataracts, Rhinoplasty - Present Medications Home Medications: Ambulatory Orders Medication Instructions Recorded Confirmed Levothyroxine Sodium 1 tab PO DAILY 07/24/17 05/07/22 Cholecalciferol [Vitamin D3] 1 cap ORAL DAILY 11/04/18 04/13/22 Multivitamin 1 each PO DAILY 01/01/22 05/07/22 Phenylephrine/Dm/Acetaminop/GG 355 ml PO DAILY 01/01/22 05/07/22 [Daytime Severe Cold-Flu Liquid] Tamsulosin HCl [Flomax] 0.4 mg PO BID 01/01/22 05/07/22 Lidocaine Patch 5% [Lidoderm Patch] 1 patch TOP DAILY PRN #10 patch 03/24/22 05/07/22 oxyCODONE [Roxicodone] 5 mg PO BID PRN #10 tablet 04/03/22 05/07/22 Cyclobenzaprine [Flexeril] 10 mg PO TID PRN #20 tablet 04/13/22 05/07/22 Oxycodone HCl/Acetaminophen 1 - 2 each PO Q6H PRN #14 tablet 04/13/22 05/07/22 [Percocet 5-325 mg Tablet] - Allergies Allergies/Adverse Reactions: Allergies Allergy/AdvReac Type Severity Reaction Status Date / Time No Known Drug Allergies Allergy Verified 05/07/22 04:39 - Social History Does the pt smoke?: No Smoking Status: Never smoker Does the pt drink ETOH?: No Does the pt have substance abuse?: No - Immunizations Immunizations are current?: Yes Immunizations: TDAP current <10years - POLST Patient has POLST: No PD ED PE NORMAL - Vitals Vital signs reviewed: Yes - General General: Alert and oriented X 3, No acute distress, Well developed/nourished - HEENT HEENT: Atraumatic, PERRL, EOMI, Pharynx benign, Other (dry MM) - Neck Neck: Supple, no meningeal sign - Cardiac Cardiac: RRR - Respiratory Respiratory: No respiratory distress, Clear bilaterally - Abdomen Abdomen: Non tender, Non distended - Derm Derm: Normal color, Warm and dry - Neuro Neuro: Alert and oriented X 3, wiring mechanic 2-12 intact, No motor deficit, No sensory deficit, Normal speech Eye Opening: Spontaneous Motor: Obeys Commands Verbal: Oriented GCS Score: 15 - Psych Psych: Normal mood, Normal affect Results - Vitals Vitals: Vital Signs - 24 hr 05/07/22 05/07/22 05/07/22 04:20 04:51 05:42 Temperature 36.2 C L Heart Rate 65 65 63 Respiratory 16 20 16 Rate Blood Pressure 138/91 H 123/65 133/83 H O2 Saturation 96 96 96 05/07/22 05/07/22 05/07/22 05:52 06:23 07:01 Temperature 36.6 C Heart Rate 70 73 67 Respiratory 22 17 24 Rate Blood Pressure 120/53 L 138/86 H 152/87 H O2 Saturation 95 98 95 Oxygen O2 Source [] Room air O2 Source [] Room air O2 Source Room air - EKG (time done) 0422 Rate: Rate (enter#) (65) Rhythm: NSR [place]: Normal Intervals: Normal VA QRS: Normal Ischemia: Normal ST segments - Labs Labs: Laboratory Tests 11/02/22 11/02/22 11/02/22 05:45 05:45 05:45 WBC 3.8 L RBC 4.10 L Hgb 13.4 L Hct 40.5 L MCV 98.8 H MCH 32.7 H MCHC 33.1 RDW 12.7 Plt Count 248 MPV 8.8 Neut # (Auto) 2.4 Lymph # (Auto) 0.7 L Wirt # (Auto) 0.4 Eos # (Auto) 0.2 Baso # (Auto) 0.0 Absolute Nucleated RBC 0.00 Nucleated RBC % 0.0 Sodium 140 Potassium 4.1 Chloride 102 Carbon Dioxide 32 Anion Gap 6.0 BUN 21 H Creatinine 0.9 Estimated GFR (MDRD) 83 L Glucose 102 H Calcium 9.1 Total Bilirubin 0.6 AST 22 ALT 17 Alkaline Phosphatase 149 H Troponin I High Sens 6.6 Total Protein 6.7 Albumin 3.5 Globulin 3.2 Albumin/Globulin Ratio 1.1 Lipase 59 H PD MEDICAL DECISION MAKING - ED course ED course: 71yM p/w syncopal episode when he got up to go to the bathroom late this past evening. Multiple episodes in the past. currently being worked up with possible medications as cause for these episodes. patient takes testosterone timoteo for his prostate cancer that has been identified as possible contributor. Appointmen t with Dr. Haley this thursday to discuss. d/w patient and daughter and shared decision was made to perform screening labwork and administer IVF. plan to f/u with Dr. Haley. return precautions vilma danayquincy. Departure - Departure Disposition: Home, Self Care Clinical Impression: Syncope, Dizziness Condition: Good Instructions: ED Fainting Unkn Cause Comments: You were seen in the ED for a fainting episode (syncope). Your labwork and ekg uncovered no emergent issues, but you should keep your appointment with Dr. Haley this thursday to investigate further. Return to the ED if you have new or worsening symptoms or other concerns.
[2022-05-07 06:07] LABS: ALBUMIN 3.5 g/dL (3.2-5.5); ALBUMIN/GLOBULIN RATIO 1.1 (1.0-2.2); BILIRUBIN,TOTAL 0.6 mg/dL (0.2-1.0); CALCIUM 9.1 mg/dL (8.5-10.3); CREATININE 0.9 mg/dL (0.6-1.2); POTASSIUM 4.1 mmol/L (3.5-5.0); TOTAL PROTEIN 6.7 g/dL (6.7-8.2)
[2022-05-07 07:30] VITALS: BP 127/88
== END 2022-05-07 07:43 | disposition home or self-care (01) ==
LOC: ED 04:18
DX: R55 Syncope and collapse (principal)
CPT/HCPCS: 36415; 80053; 83690; 84484; 85025; 93005; 99282; 99284

== ENCOUNTER 2022-05-11 10:41 | Emergency (ER) | payer MEDICARE ==
[2022-05-11 10:55] VITALS: BP 115/68
--- NOTE | 2022-05-11 12:58 | ED Physician Documentation ---
<Bayron Pereyra - Last Filed: 05/11/22 12:53> History of Present Illness - Stated complaint Stated Complaint: FALL/BACK INJ - Chief complaint Chief Complaint: Back Pain PD PAST MEDICAL HISTORY - Past Medical History Cardiovascular: None, Other Respiratory: Pneumonia, Shortness of breath, Other Neuro: None Endocrine/Autoimmune: HyPOthyroidism GI: None : Benign prostate hypertrophy, Frequency Psych: Anxiety Musculoskeletal: Other Derm: None - Past Surgical History Past Surgical History: Yes General: Appendectomy Ortho: Spine surgery, Other Neuro: Other HEENT: Cataracts, Rhinoplasty - Present Medications Home Medications: Ambulatory Orders Medication Instructions Recorded Confirmed Levothyroxine Sodium 1 tab PO DAILY 07/24/17 05/07/22 Cholecalciferol [Vitamin D3] 1 cap ORAL DAILY 11/04/18 04/13/22 Multivitamin 1 each PO DAILY 01/01/22 05/07/22 Phenylephrine/Dm/Acetaminop/GG 355 ml PO DAILY 01/01/22 05/07/22 [Daytime Severe Cold-Flu Liquid] Tamsulosin HCl [Flomax] 0.4 mg PO BID 01/01/22 05/07/22 Lidocaine Patch 5% [Lidoderm Patch] 1 patch TOP DAILY PRN #10 patch 03/24/22 05/07/22 oxyCODONE [Roxicodone] 5 mg PO BID PRN #10 tablet 04/03/22 05/07/22 Cyclobenzaprine [Flexeril] 10 mg PO TID PRN #20 tablet 04/13/22 05/07/22 Oxycodone HCl/Acetaminophen 1 - 2 each PO Q6H PRN #14 tablet 04/13/22 05/07/22 [Percocet 5-325 mg Tablet] - Allergies Allergies/Adverse Reactions: Allergies Allergy/AdvReac Type Severity Reaction Status Date / Time No Known Drug Allergies Allergy Verified 05/11/22 10:53 - Social History Does the pt smoke?: No Smoking Status: Never smoker Does the pt drink ETOH?: No Does the pt have substance abuse?: No - Immunizations Immunizations are current?: Yes Immunizations: TDAP current <10years - POLST Patient has POLST: No <Ryan Shipman - Last Filed: 05/11/22 13:00> History of Present Illness - History obtained from History obtained from: Patient - Additonal information Additional information: 71-year-old gentleman with history of prostate cancer status post radiation treatment and testosterone blockade. He fell about a month and a half ago and injured his back with several transverse process fractures. Yesterday was walk ing on his back porch and slipped and fell onto his right low back and has increased low back pain in the lower lumbar spine. No other injuries. Declines pain medication on initial evaluation. He has been using topical CBD which is helpful. Review of Systems Constitutional: reports: Reviewed and negative Throat: reports: Reviewed and negative Cardiac: reports: Reviewed and negative Respiratory: reports: Reviewed and negative PD ED PE NORMAL - Vitals Vital signs reviewed: Yes - General General: Alert and oriented X 3, No acute distress - Abdomen Abdomen: Normal bowel sounds, Soft, Non tender - Back Back: Other (I am unable to elicit any tenderness of the lumbar spine, but he says it was that way when he originally broke his back.) - Extremities Extremities: Other (The patient has equal and normal Achilles and patellar reflexes bilaterally. Normal sensation in all areas of the legs. Patient denies saddle anesthesia. Normal strength in flexion-extension at the ankles, knees, and flexion of the hips.) - Neuro Neuro: Alert and oriented X 3, Normal speech Results - Vitals Vitals: Vital Signs - 24 hr 05/11/22 10:51 Temperature 36.4 C L Heart Rate 81 Respiratory 16 Rate Blood Pressure 115/68 O2 Saturation 100 Oxygen O2 Source [With Activity] Room air O2 Source [Without Activity] Room air O2 Source Room air
--- NOTE | 2022-05-11 14:15 | CT Report ---
PROCEDURE: CT lumbar spine without contrast INDICATIONS: back injury TECHNIQUE: Noncontrast 3 mm thick sections acquired from the T12 level to the sacrum. Sagittal and coronal refo rmats were constructed. For radiation dose reduction, the following was used: automated exposure co ntrol, adjustment of mA and/or kV according to patient size. COMPARISON: 04/03/2022 FINDINGS: Image quality: Excellent. Generalized decreased osseous mineralization present. The right iliac orthopedic hardware remains unc hanged in prior. No failure or loosening. Wedge-shaped compression fracture at the L1 and L4 also remain unchanged. Subacute fractures of the L5 transverse process, pedicle and bilateral sacral ala noted similar to pr ior exam. There is increasing sclerosis and minimal remodeling of the fracture lines. No displacement . Degenerative disc disease and arthropathy results in moderate central stenosis at L2-3 and L3-4 to le sser degree. IMPRESSION: 1. No evidence for acute fracture or traumatic malalignment. 2. Healing L5 and sacral ala fractures show increasing sclerosis and remodeling. 3. Stable L1 and L4 compression fractures 4. Degenerative disc disease and arthropathy Reviewed by: Robert Rodriguez MD on 05/11/2022 1:14 PM [place] Approved by: Robert Rodriguez MD on 05/11/2022 1:[address] Station ID: [id number]
--- NOTE | 2022-05-11 14:31 | ED Physician Documentation ---
PD HPI BACK PAIN - Stated complaint Stated Complaint: FALL/BACK INJ - Chief complaint Chief Complaint: Back Pain - History obtained from History obtained from: Patient - Additional information Additional information: He fell about a month and a half ago with some compression fractures and transverse process fractures in the lumbar spine. Slowly improving but yesterday fell again slipping on a wet deck onto the right low back with increased right back pain. Declines pain medication initial evaluation. Review of Systems Constitutional: denies: Fever, Chills Respiratory: denies: Dyspnea, Cough GI: denies: Abdominal Pain, Abdominal Swelling, Nausea, Vomiting PD PAST MEDICAL HISTORY - Past Medical History Cardiovascular: None, Other Respiratory: Pneumonia, Shortness of breath, Other Neuro: None Endocrine/Autoimmune: HyPOthyroidism GI: None : Benign prostate hypertrophy, Frequency Psych: Anxiety Musculoskeletal: Other Derm: None - Past Surgical History Past Surgical History: Yes General: Appendectomy Ortho: Spine surgery, Other Neuro: Other HEENT: Cataracts, Rhinoplasty - Present Medications Home Medications: Ambulatory Orders Medication Instructions Recorded Confirmed Levothyroxine Sodium 1 tab PO DAILY 07/24/17 05/07/22 Cholecalciferol [Vitamin D3] 1 cap ORAL DAILY 11/04/18 04/13/22 Multivitamin 1 each PO DAILY 01/01/22 05/07/22 Phenylephrine/Dm/Acetaminop/GG 355 ml PO DAILY 01/01/22 05/07/22 [Daytime Severe Cold-Flu Liquid] Tamsulosin HCl [Flomax] 0.4 mg PO BID 01/01/22 05/07/22 Lidocaine Patch 5% [Lidoderm Patch] 1 patch TOP DAILY PRN #10 patch 03/24/22 05/07/22 oxyCODONE [Roxicodone] 5 mg PO BID PRN #10 tablet 04/03/22 05/07/22 Cyclobenzaprine [Flexeril] 10 mg PO TID PRN #20 tablet 04/13/22 05/07/22 Oxycodone HCl/Acetaminophen 1 - 2 each PO Q6H PRN #14 tablet 04/13/22 05/07/22 [Percocet 5-325 mg Tablet] - Allergies Allergies/Adverse Reactions: Allergies Allergy/AdvReac Type Severity Reaction Status Date / Time No Known Drug Allergies Allergy Verified 05/11/22 10:53 - Social History Does the pt smoke?: No Smoking Status: Never smoker Does the pt drink ETOH?: No Does the pt have substance abuse?: No - Immunizations Immunizations are current?: Yes Immunizations: TDAP current <10years - POLST Patient has POLST: No PD ED PE NORMAL - Vitals Vital signs reviewed: Yes - General General: Alert and oriented X 3, No acute distress - Neck Neck: Supple, no meningeal sign, No bony TTP - Back Back: Other (I am unable to elicit any tenderness of the lumbar spine, but he states it was like that with previous fracture.) - Extremities Extremities: Other (The patient has equal and normal Achilles and patellar reflexes bilaterally. Normal sensation in all areas of the legs. Patient denies saddle anesthesia. Normal strength in flexion-extension at the ankles, knees, and flexion of the hips.) - Neuro Neuro: Alert and oriented X 3, Normal speech Results - Vitals Vitals: Vital Signs - 24 hr 05/11/22 10:51 Temperature 36.4 C L Heart Rate 81 Respiratory 16 Rate Blood Pressure 115/68 O2 Saturation 100 Oxygen O2 Source [With Activity] Room air O2 Source [Without Activity] Room air O2 Source Room air - Rads (name of study) CT of the lumbar spine Radiology: EMP read contemporaneously PD MEDICAL DECISION MAKING - ED course ED course: 71-year-old gentleman with worse back pain after a fall but no evidence of refracture. He declined pain medication. Departure - Departure Disposition: 01 Home, Self Care Clinical Impression: Acute exacerbation of chronic low back pain Condition: Good Record reviewed to determine appropriate education?: Yes Instructions: ED Low Back Pain Injury Comments: Tylenol per package instructions and you can continue CBD for the low back pain. Return for new or worsening symptoms. Follow-up with your doctor in a week for recheck.
== END 2022-05-11 14:36 | disposition home or self-care (01) ==
LOC: ED 10:41
DX: S39.92XA Unspecified injury of lower back, initial encounter (principal); G89.29 Other chronic pain; W01.0XXA Fall on same level from slipping, tripping and stumbling without subsequent striking against object, initial encounter
CPT/HCPCS: 99282; 99284

== ENCOUNTER → 2022-06-18 | Outpatient (CLI) | payer MEDICARE | END | disposition short-term general hospital (02) | LOC: EMS 12:59 | DX: S61.512A Laceration without foreign body of left wrist, initial encounter (principal); W29.3XXA Contact with powered garden and outdoor hand tools and machinery, initial encounter; Y93.89 Activity, other specified; Y92.009 Unspecified place in unspecified non-institutional (private) residence as the place of occurrence of the external cause | CPT/HCPCS: A0425; A0427; A0888 ==

== ENCOUNTER 2022-06-30 08:32 | Outpatient (CLI) | payer MEDICARE, OTHER ==
[2022-06-30 11:50] LABS: ALBUMIN 4.1 g/dL (3.2-5.5); ALBUMIN/GLOBULIN RATIO 1.3 (1.0-2.2); ALKALINE PHOSPHATASE 113 IU/L (42-121); ALT ALANINE AMINOTRANSFERASE 16 IU/L (10-60); AST ASPARTATE AMINOTRANSFERASE 24 IU/L (10-42); BILIRUBIN,TOTAL 0.6 mg/dL (0.2-1.0); BUN - BLOOD UREA NITROGEN 26 mg/dL (6-20); CALCIUM 9.1 mg/dL (8.5-10.3); CARBON DIOXIDE - CO2 25 mmol/L (21-32); CHLORIDE 104 mmol/L (101-111); CHOL/HDL RATIO 2.5 (<5.0); CHOLESTEROL 215 mg/dL; CREATININE 0.8 mg/dL (0.6-1.2); GFR - MDRD 95 (>89); GLUCOSE 102 mg/dL (70-100); HDL CHOLESTEROL 85 mg/dL; LDL CHOLESTEROL,CALCULATED 109 mg/dL; LDL/HDL RATIO 1.3 (<3.6); POTASSIUM 3.8 mmol/L (3.5-5.0); SODIUM 137 mmol/L (135-145); TOTAL PROTEIN 7.2 g/dL (6.7-8.2); TRIGLYCERIDES 107 mg/dL; VLDL CHOLESTEROL 21 mg/dL
[2022-06-30 11:58] LABS: ESTIMATED AVERAGE GLUCOSE 108 mg/dL (70-100); HEMOGLOBIN A1c% 5.4 % (4.27-6.07)
[2022-06-30 12:00] LABS: THYROID STIMULATING HORMONE 1.38 uIU/mL (0.34-5.60)
== END 2022-06-30 08:33 | disposition home or self-care (01) ==
LOC: LAB.N 08:32
PROVIDERS: ATTEND Internal Medicine
DX: E03.9 Hypothyroidism, unspecified (principal); R73.01 Impaired fasting glucose; Z13.220 Encounter for screening for lipoid disorders
CPT/HCPCS: 36415; 80053; 80061; 83036; 83721; 84443

== ENCOUNTER 2022-09-16 07:08 | Outpatient (CLI) | payer OTHER, MEDICARE ==
[2022-09-16 12:46] LABS: BASOPHILS % (AUTO) 0.7 %; EOSINOPHILS # (AUTO) 0.3 10^3/uL (0.0-0.7); HCT - HEMATOCRIT 43.5 % (42.0-52.0); HGB - HEMOGLOBIN 14.5 g/dL (14.0-18.0); LYMPHOCYTES # (AUTO) 1.1 10^3/uL (1.5-3.5); LYMPHOCYTES % (AUTO) 26.3 %; MEAN CORPUSCULAR HEMOGLOBIN 32.5 pg (27.0-31.0); MEAN CORPUSCULAR HGB CONC 33.3 g/dL (32.0-36.0); MEAN CORPUSCULAR VOLUME 97.5 fL (80.0-94.0); MEAN PLATELET VOLUME 9.3 fL (7.4-11.4); MONOCYTES # (AUTO) 0.5 10^3/uL (0.0-1.0); MONOCYTES % (AUTO) 10.4 %; NEUTROPHILS # (AUTO) 2.4 10^3/uL (1.5-6.6); NEUTROPHILS % (AUTO) 56.4 %; PLT - PLATELET COUNT 228 10^3/uL (130-450); RED BLOOD COUNT 4.46 10^6/uL (4.70-6.10); RED CELL DISTRIBUTION WIDTH 13.2 % (12.0-15.0); WHITE BLOOD COUNT 4.3 x10^3/uL (4.8-10.8)
[2022-09-16 13:27] LABS: THYROID STIMULATING HORMONE 4.03 uIU/mL (0.34-5.60)
[2022-09-16 13:44] LABS: ALBUMIN 3.7 g/dL (3.2-5.5); ALBUMIN/GLOBULIN RATIO 1.3 (1.0-2.2); ALKALINE PHOSPHATASE 86 IU/L (42-121); ALT ALANINE AMINOTRANSFERASE 20 IU/L (10-60); AST ASPARTATE AMINOTRANSFERASE 22 IU/L (10-42); BILIRUBIN,TOTAL 0.5 mg/dL (0.2-1.0); BUN - BLOOD UREA NITROGEN 21 mg/dL (6-20); CALCIUM 8.9 mg/dL (8.5-10.3); CARBON DIOXIDE - CO2 27 mmol/L (21-32); CHLORIDE 105 mmol/L (101-111); CHOL/HDL RATIO 2.6 (<5.0); CHOLESTEROL 201 mg/dL; CREATININE 0.9 mg/dL (0.6-1.2); GFR - MDRD 83 (>89); GLUCOSE 107 mg/dL (70-100); HDL CHOLESTEROL 76 mg/dL; LDL CHOLESTEROL,CALCULATED 108 mg/dL; LDL/HDL RATIO 1.4 (<3.6); POTASSIUM 4.4 mmol/L (3.5-5.0); SODIUM 138 mmol/L (135-145); TOTAL PROTEIN 6.6 g/dL (6.7-8.2); TRIGLYCERIDES 83 mg/dL; VLDL CHOLESTEROL 17 mg/dL
[2022-09-16 14:00] LABS: ESTIMATED AVERAGE GLUCOSE 117 mg/dL (70-100); HEMOGLOBIN A1c% 5.7 % (4.27-6.07)
== END 2022-09-16 07:09 | disposition home or self-care (01) ==
LOC: LAB.N 07:08
PROVIDERS: ATTEND Internal Medicine
DX: C61 Malignant neoplasm of prostate (principal); R73.01 Impaired fasting glucose; E03.9 Hypothyroidism, unspecified
CPT/HCPCS: 36415; 80053; 80061; 83036; 83721; 84153; 84443; 85025

== ENCOUNTER 2022-09-26 11:46 | Outpatient (CLI) | payer OTHER, MEDICARE ==
[2022-09-26] MEDS ORDERED: iohexoL-300 100 ML VIAL ONE (12:16)
[2022-09-26] MEDS ORDERED: iohexoL-300 100 ML VIAL IVP ONE (12:41)
--- NOTE | 2022-09-26 19:10 | CT Report ---
PROCEDURE: IVP INDICATIONS: PROSTATE CA CONTRAST: 140ml omni 300 TECHNIQUE: After the administration of intravenous contrast, 5 mm thick sections acquired from the diaphragms to the symphysis. 5 mm thick coronal and sagittal reformats were acquired. For radiation dose reducti on, the following was used: automated exposure control, adjustment of mA and/or kV according to michael ent size. COMPARISON: CT of abdomen and pelvis with, 02/13/2021 and 10/06/2019. FINDINGS: Image quality: Excellent. Lung bases: Bibasilar scars and atelectasis. Multiple right rib fractures are noted. Heart size is n ormal. Moderate coronary calcification. Urinary system: Both kidneys are normal in size and enhancement. Contrast-filled renal calyces are normal in morphology. Contrast filled portions of both ureters are normal in caliber. Bladder wall thickness is normal. There is a 11 x 16 mm stone in bladder. Solid organs: Liver and spleen are normal in size and enhancement. Gallbladder and small gallstones . Biliary system is non dilated. Pancreas enhances normally. No adrenal nodules. Peritoneum and bowel: Bowel loops demonstrate normal wall thickness and caliber. No free fluid or a ir. Nodes and vessels: No retroperitoneal or mesenteric adenopathy by size criteria. Aorta and inferior vena cava are normal in size. Abdominal wall: No ventral hernias. Pelvis: No pathologic free pelvic fluid. No inguinal hernias or adenopathy. Bones: No suspicious bony lesions. Mild compression deformity of L4. Old right pelvic fracture and femoral neck fracture with internal fixation. Multiple old right rib fractures noted. There is osteop enia. IMPRESSION: 1. Unremarkable CT IVP . 2. There is a large stone within the urinary bladder. No kidney stones or ureteral stones. No hydrone phrosis. No solid renal masses. 3. Prostatectomy. No metastatic disease is identified. 4. Cholelithiasis. Reviewed by: Annie Mccoy MD on 09/26/2022 7:08 PM PDT Approved by: Annie Mccoy MD on 09/26/2022 7:08 PM PDT Station ID: [id number]
== END 2022-09-26 11:47 | disposition home or self-care (01) ==
LOC: DI 11:46
PROVIDERS: ATTEND Urology
DX: C61 Malignant neoplasm of prostate (principal); R31.0 Gross hematuria; N21.0 Calculus in bladder; Z90.79 Acquired absence of other genital organ(s); K80.20 Calculus of gallbladder without cholecystitis without obstruction
CPT/HCPCS: 74178; Q9967

== ENCOUNTER 2022-10-08 07:59 | Outpatient (CLI) | payer OTHER, MEDICARE ==
--- NOTE | 2022-10-08 10:09 | DEXA Report ---
PROCEDURE: Dexa Spine and/or Hip INDICATIONS: ANDROGEN DEPRIVATION THERAPY TECHNIQUE: Dual energy x-ray absorptiometry (DXA) was performed on a [employer] System. Regions measur ed are the AP Spine, femoral neck, and if needed forearm. COMPARISON: None. FINDINGS: Lumbar Spine: Bone Mineral Density 1.06 g/cm/cm,T score -1.3, Left Femoral Neck: Bone Mineral Density 0.6 g/cm/cm, T score -3.6, Left Hip: Bone Mineral Density 0.65 g/cm/cm,T score -3.2, (T score greater or equal to -1.0: NORMAL) (T score from -1.1 to -2.4: OSTEOPENIA) (T score less than or equal to -2.5 to: OSTEOPOROSIS) Impression: Significantly decreased bone mineral density and increased fracture risk. 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 Patients with diagnosis of osteoporosis or osteopenia should have regular bone mineral density assess ment. For those eligible for Medicare, routine testing is allowed once every 2 years. Testing frequ ency can be increased for patients who have rapidly progressing disease or for those who are receivin g medical therapy to restore bone mass. Reviewed by: Emil Farah MD on 10/08/2022 9:27 AM PDT Approved by: Emil Farah MD on 10/08/2022 9:27 AM PDT Station ID: [id number]
== END 2022-10-08 08:00 | disposition home or self-care (01) ==
LOC: DI 07:59
PROVIDERS: ATTEND Internal Medicine
DX: C61 Malignant neoplasm of prostate (principal); Z79.818 Long term (current) use of other agents affecting estrogen receptors and estrogen levels; M81.0 Age-related osteoporosis without current pathological fracture

== ENCOUNTER 2022-10-27 16:46 | Outpatient (CLI) | payer OTHER | END 2022-10-27 16:47 | disposition critical access hospital (66) | LOC: EMS 16:46 | DX: M54.50 Low back pain, unspecified (principal); X50.0XXA Overexertion from strenuous movement or load, initial encounter; Y93.89 Activity, other specified; Y92.008 Other place in unspecified non-institutional (private) residence as the place of occurrence of the external cause | CPT/HCPCS: A0425; A0429 ==

== ENCOUNTER 2022-10-27 17:09 | Emergency (ER) | payer MEDICARE, OTHER ==
[2022-10-27] MEDS ORDERED: oxyCODONE 5 MG TABLET PO STA (17:24)
--- NOTE | 2022-10-27 17:25 | ED Physician Documentation ---
PD HPI BACK PAIN - Stated complaint Stated Complaint: BACK PX - Chief complaint Chief Complaint: Back Pain - History obtained from History obtained from: Patient, EMS - Additional information Additional information: 71-year-old gentleman who has had a lot of back issues in the past presents wanting a CAT scan to make sure he did not break his back. He has a history of compression and transverse process fractures. Yesterday he was getting big logs out of his dump trailer and did something, he does not remember exactly what. Now has increased pain in the area of L5. No weakness, numbness, tingling, saddle anesthesia, or fevers. No incontinence. PD PAST MEDICAL HISTORY - Past Medical History Cardiovascular: None, Other Respiratory: Pneumonia, Shortness of breath, Other Neuro: None Endocrine/Autoimmune: HyPOthyroidism GI: None : Benign prostate hypertrophy, Frequency Psych: Anxiety Musculoskeletal: Other Derm: None - Past Surgical History Past Surgical History: Yes General: Appendectomy Ortho: Spine surgery, Other Neuro: Other HEENT: Cataracts, Rhinoplasty - Present Medications Home Medications: Ambulatory Orders Medication Instructions Recorded Confirmed Tamsulosin HCl [Flomax] 0.4 mg PO BID 01/01/22 10/27/22 Levothyroxine [Synthroid] 88 mcg PO DAILY 10/27/22 10/27/22 - Allergies Allergies/Adverse Reactions: Allergies Allergy/AdvReac Type Severity Reaction Status Date / Time No Known Drug Allergies Allergy Verified 10/27/22 17:19 - Social History Does the pt smoke?: No Smoking Status: Never smoker Does the pt drink ETOH?: No Does the pt have substance abuse?: No - Immunizations Immunizations are current?: Yes Immunizations: TDAP current <10years - POLST Patient has POLST: No PD ED PE NORMAL - Vitals Vital signs reviewed: Yes - General General: Alert and oriented X 3, No acute distress - Abdomen Abdomen: Non tender - Back Back: Other (Focally tender about L5) - Extremities Extremities: Other (The patient has equal and normal Achilles and patellar reflexes bilaterally. Normal sensation in all areas of the legs. Patient denies saddle anesthesia. Normal strength in flexion-extension at the ankles, knees, and flexion of the hips.) - Neuro Neuro: Alert and oriented X 3 Results - Vitals Vitals: Vital Signs - 24 hr 04/24/23 04/24/23 17:15 17:37 Temperature 37.2 C Heart Rate 74 71 Respiratory 18 16 Rate Blood Pressure 125/80 112/63 O2 Saturation 98 98 Oxygen O2 Source [With Activity] Room air O2 Source [Without Activity] Room air O2 Source Room air - Rads (name of study) CT of the lumbar spine demonstrates chronic findings and healing old fractures without acute findings. Relevant Findings:: Final report received, EMP independent interpretation of test Departure - Departure Disposition: 01 Home, Self Care Clinical Impression: Back pain Condition: Good Record reviewed to determine appropriate education?: Yes Instructions: ED Low Back Pain Injury Comments: No new fractures or obvious injuries from yesterday based on CAT scan and today. Return for new or worsening symptoms. Tylenol and/or ibuprofen as needed for pain. Follow-up with your doctor to discuss this visit. Discharge Date/Time: 10/27/22 19:12
[2022-10-27 17:38] VITALS: BP 112/63
--- OUTSIDE RECORDS SUMMARY | 2022-10-27 18:20 | EXTERNAL MEDICAL SUMMARY RPT | Continuity of Care Document ---
:1950 Author Organization [facility] [address] [place] [address] Phone Allergies No information. Encounters No information. Functional Status No information. Immunizations No information. Medications No information. Problems date description facility 2022-08-30 11:32 Pathological fracture, other site, [facility] encounter for 2022-08-30 11:32 Wedge compression fracture of [facility] vertebra, initial Procedures No information. Results/Labs test date author facility value unit interpret ation Result panel 1 (unknown) (no (unknown) (unknown) (no value) (units (unk nown) date) unknown) (unknown) (no (unknown) (unknown) [id number] (units (unkn own) date) unknown) (unknown) (no (unknown) (unknown) 08/30/22 (units (unkno wn) date) unknown) (unknown) (no (unknown) (unknown) 1. As before, (units ( unknown) date) there are unknown) bilateral sacral insufficiency fractures. (unknown) (no (unknown) (unknown) [address] [place] [address] (units (unknown) date) unknown) (unknown) (no (unknown) (unknown) 2. Previously, (units (unknown) date) there was a mild unknown) subacute L5 compression fracture. This has (unknown) (no (unknown) (unknown) 3. Findings, (units (u nknown) date) otherwise, are unknown) stable. (unknown) (no (unknown) (unknown) Accession (units (unkn own) date) Number: unknown) [id number] (unknown) (no (unknown) (unknown) Age/Sex: 71 / M (units (unknown) date) Date of Service: unknown) (unknown) (no (unknown) (unknown) Alignment and (units ( unknown) date) Curvature: There unknown) is normal bony alignment. (unknown) (no (unknown) (unknown) SILVANA Cardona (units ( unknown) date) [id number] unknown) (unknown) (no (unknown) (unknown) Approved by: (units (u nknown) date) Bobby Bliss, unknown) Jam on 09/01/2022 at 9:05 (unknown) (no (unknown) (unknown) Bone Marrow: (units (u nknown) date) Again noted is unknown) bilateral sacral signal abnormality consistent (unknown) (no (unknown) (unknown) COMPARISON: (units (un known) date) [facility], unknown) MR, MR LUMBAR SPINE WO CON, 07/10/2022, 17:41. (unknown) (no (unknown) (unknown) : 1950 (units (unknown) date) Acct:[id number] unknown) (unknown) (no (unknown) (unknown) Dictated by: (units (u nknown) date) Bobby Bliss, unknown) Jam on 09/01/2022 at 8:57 (unknown) (no (unknown) (unknown) FINDINGS: (units (unkn own) date) unknown) (unknown) (no (unknown) (unknown) IMPRESSION: (units (un known) date) unknown) (unknown) (no (unknown) (unknown) INDICATIONS: (units (u nknown) date) Wedge compression unknown) fracture of fifth lumbar vertebr (unknown) (no (unknown) (unknown) Image quality: (units (unknown) date) Excellent. unknown) (unknown) (no (unknown) (unknown) [facility] (units (unknown) date) unknown) (unknown) (no (unknown) (unknown) L1-L2: Posterior (units (unknown) date) disc post unknown) osteophyte. Facet hypertrophy. No canal stenosis (unknown) (no (unknown) (unknown) L2-L3: Disc (units (un known) date) bulge. Facet unknown) hypertrophy. Mild canal stenosis. No significant (unknown) (no (unknown) (unknown) L3-L4: Disc (units (un known) date) bulge. Facet unknown) hypertrophy. Mild canal stenosis. No significant (unknown) (no (unknown) (unknown) L4-L5: Disc (units (un known) date) bulge. Facet unknown) hypertrophy. Mild canal stenosis. Moderate right (unknown) (no (unknown) (unknown) L5-S1: Disc (units (un known) date) bulge. Facet unknown) hypertrophy. No canal stenosis. Moderate bilateral (unknown) (no (unknown) (unknown) Loc: MRI (units (unkno wn) date) unknown) (unknown) (no (unknown) (unknown) Magnetic (units (unkno wn) date) Resonance Report unknown) (unknown) (no (unknown) (unknown) Noncontrast (units (un known) date) sagittal T1 spin unknown) echo and T2 fast echo, sagittal STIR, and T2 fast (unknown) (no (unknown) (unknown) Ordering (units (unkno wn) date) Provider: unknown) Kale Mulligan D.O. (unknown) (no (unknown) (unknown) PROCEDURE: MR (units ( unknown) date) LUMBAR SPINE WO unknown) CON (unknown) (no (unknown) (unknown) Paraspinous Soft (units (unknown) date) Tissues: No unknown) paravertebral masses. (unknown) (no (unknown) (unknown) Patient: (units (unkno wn) date) JoelMiguel W unknown) MR#: M (unknown) (no (unknown) (unknown) Procedure: MR (units ( unknown) date) lumbar spine wo unknown) con (unknown) (no (unknown) (unknown) Signed (units (unkno wn) date) unknown) (unknown) (no (unknown) (unknown) Spinal Cord: (units (u nknown) date) Conus medullaris unknown) terminates at the T12/L1 level. Visualized cord (unknown) (no (unknown) (unknown) T12-L1: (units (unkno wn) date) Posterior disc unknown) post osteophyte. No canal stenosis or foraminal (unknown) (no (unknown) (unknown) TECHNIQUE: (units (unk nown) date) unknown) (unknown) (no (unknown) (unknown) amount of (units (unkn own) date) unknown) (unknown) (no (unknown) (unknown) apparently (units (unk nown) date) unknown) (unknown) (no (unknown) (unknown) bilateral sacral (units (unknown) date) insufficiency unknown) fractures. Again noted is a superior endplate (unknown) (no (unknown) (unknown) compression (units (un known) date) unknown) (unknown) (no (unknown) (unknown) compression. (units (u nknown) date) unknown) (unknown) (no (unknown) (unknown) demonstrates (units (u nknown) date) normal signal and unknown) size. (unknown) (no (unknown) (unknown) foraminal (units (unkn own) date) stenosis. unknown) (unknown) (no (unknown) (unknown) foraminal (units (unkn own) date) unknown) (unknown) (no (unknown) (unknown) fracture of L5 (units (unknown) date) which continues unknown) to have bone marrow signal abnormality. The (unknown) (no (unknown) (unknown) fracture. There (units (unknown) date) unknown) (unknown) (no (unknown) (unknown) is slight (units (unkn own) date) interval increase unknown) in the amount of midportion vertebral body height (unknown) (no (unknown) (unknown) loss, which (units (un known) date) unknown) (unknown) (no (unknown) (unknown) may be (units (unkno wn) date) performed. unknown) (unknown) (no (unknown) (unknown) now measures (units (u nknown) date) approximately unknown) 15%. No interval fractures at other levels. Old L1 (unknown) (no (unknown) (unknown) or (units (unkno wn) date) unknown) (unknown) (no (unknown) (unknown) refractured, (units (u nknown) date) with slight unknown) interval increase in vertebral body height loss. (unknown) (no (unknown) (unknown) signal (units (unkno wn) date) abnormality is unknown) actually a bit increased, indicating interval Re (unknown) (no (unknown) (unknown) spin echo (units (unkn own) date) unknown) (unknown) (no (unknown) (unknown) stenosis and (units (u nknown) date) [id number] unknown) left foraminal stenosis. (unknown) (no (unknown) (unknown) stenosis. (units (unkn own) date) unknown) (unknown) (no (unknown) (unknown) through the (units (un known) date) lumbar spine. In unknown) cases with scoliosis, additional coronal T2 fast (unknown) (no (unknown) (unknown) with (units (unkno wn) date) unknown) Social History No information. Vital Signs No information.
--- NOTE | 2022-10-27 18:53 | CT Report ---
PROCEDURE: LUMBAR SPINE WO INDICATIONS: back pain TECHNIQUE: Noncontrast 3 mm thick sections acquired from the T12 level to the sacrum. Sagittal and coronal refo rmats were constructed. For radiation dose reduction, the following was used: automated exposure co ntrol, adjustment of mA and/or kV according to patient size. COMPARISON: CT lumbar spine 05/11/2022. FINDINGS: Image quality: Excellent. Bones: There is normal bony alignment. No acute vertebral body compression fractures. Superior end plate deformity at L1 and L4 are unchanged. No suspicious lytic or blastic bony lesions. Central spi nal caliber is of normal overall caliber. Spinal stenosis remains most prominent at L2-3 and L3-4. Fo raminal narrowing is most prominent at L5-S1. Multilevel disc desiccation is present most severe at L5-S1. Old sacral ala fractures as well as frac tures within the pedicle and transverse process. Soft tissues: No retroperitoneal masses or hematomas. Visualized aorta is normal in caliber. IMPRESSION: Multilevel degenerative changes as well as old fractures stable compared to prior exam. Reviewed by: Susanna Urena MD on 10/27/2022 6:51 PM PDT Approved by: Susanna Urena MD on 10/27/2022 6:51 PM PDT Station ID: [id number]
== END 2022-10-27 19:12 | disposition home or self-care (01) ==
LOC: EDUNIT# → EDSEX → ED 17:09
DX: M54.50 Low back pain, unspecified (principal); E03.9 Hypothyroidism, unspecified; Z79.899 Other long term (current) drug therapy
CPT/HCPCS: 72131; 99283; 99284; A9270

== ENCOUNTER 2023-02-03 12:58 | Outpatient (CLI) | payer OTHER ==
--- NOTE | 2023-02-03 15:55 | XRAY Report ---
PROCEDURE: Chest 2 View X-Ray INDICATIONS: PNEUMONIA TECHNIQUE: 2 views of the chest were acquired. COMPARISON: Chest x-ray 01/19/2023 FINDINGS: Surgical changes and devices: None. Lungs and pleura: Persistent left hemidiaphragm elevation. Previous area of increased retrocardiac o pacity remains present although suspected to be in part secondary to superimposed elevated left hemid iaphragm. Mediastinum: Mediastinal contours appear normal. Heart size is normal. Bones and chest wall: No suspicious bony lesions. Overlying soft tissues appear unremarkable. IMPRESSION: Incompletely resolved retrocardiac opacity, with appearance in part secondary to elevated hemidiaphra gm. Reviewed by: Susanna Urena MD on 02/03/2023 3:54 PM PDT Approved by: Susanna Urena MD on 02/03/2023 3:54 PM PDT Station ID: [id number]
== END 2023-02-03 12:59 | disposition home or self-care (01) ==
LOC: DI 12:58
PROVIDERS: ATTEND Physician Assistant Medical
DX: J18.9 Pneumonia, unspecified organism (principal)

== ENCOUNTER 2023-03-20 09:01 | Outpatient (CLI) | payer OTHER ==
[2023-03-20 12:20] LABS: BASOPHILS % (AUTO) 0.9 %; EOSINOPHILS # (AUTO) 0.2 10^3/uL (0.0-0.7); EOSINOPHILS % (AUTO) 4.4 %; HCT - HEMATOCRIT 43.5 % (42.0-52.0); HGB - HEMOGLOBIN 14.3 g/dL (14.0-18.0); LYMPHOCYTES # (AUTO) 0.8 10^3/uL (1.5-3.5); MEAN CORPUSCULAR HEMOGLOBIN 32.4 pg (27.0-31.0); MEAN CORPUSCULAR HGB CONC 32.9 g/dL (32.0-36.0); MEAN CORPUSCULAR VOLUME 98.4 fL (80.0-94.0); MEAN PLATELET VOLUME 9.7 fL (7.4-11.4); MONOCYTES # (AUTO) 0.4 10^3/uL (0.0-1.0); MONOCYTES % (AUTO) 10.7 %; PLT - PLATELET COUNT 238 10^3/uL (130-450); RED BLOOD COUNT 4.42 10^6/uL (4.70-6.10); RED CELL DISTRIBUTION WIDTH 12.9 % (12.0-15.0); WHITE BLOOD COUNT 3.4 x10^3/uL (4.8-10.8)
[2023-03-20 12:30] LABS: ALBUMIN 3.9 g/dL (3.2-5.5); ALBUMIN/GLOBULIN RATIO 1.6 (1.0-2.2); ALKALINE PHOSPHATASE 95 IU/L (42-121); ALT ALANINE AMINOTRANSFERASE 15 IU/L (10-60); AST ASPARTATE AMINOTRANSFERASE 20 IU/L (10-42); BILIRUBIN,TOTAL 0.7 mg/dL (0.2-1.0); BUN - BLOOD UREA NITROGEN 18 mg/dL (6-20); CALCIUM 9.1 mg/dL (8.5-10.3); CARBON DIOXIDE - CO2 27 mmol/L (21-32); CHLORIDE 108 mmol/L (101-111); CHOL/HDL RATIO 2.5 (<5.0); CHOLESTEROL 198 mg/dL; CREATININE 0.7 mg/dL (0.6-1.3); GFR - MDRD 110 (>89); GLUCOSE 101 mg/dL (74-104); HDL CHOLESTEROL 78 mg/dL; LDL CHOLESTEROL,CALCULATED 94 mg/dL; LDL/HDL RATIO 1.2 (<3.6); SODIUM 141 mmol/L (135-145); TOTAL PROTEIN 6.3 g/dL (6.4-8.9); TRIGLYCERIDES 131 mg/dL (48-352); VLDL CHOLESTEROL 26 mg/dL
[2023-03-20 12:42] LABS: ESTIMATED AVERAGE GLUCOSE 100 mg/dL (70-100); HEMOGLOBIN A1c% 5.1 % (4.27-6.07)
== END 2023-03-20 09:02 | disposition home or self-care (01) ==
LOC: LAB.N 09:01
PROVIDERS: ATTEND Internal Medicine
DX: C61 Malignant neoplasm of prostate (principal); Z13.220 Encounter for screening for lipoid disorders; R73.01 Impaired fasting glucose; E03.9 Hypothyroidism, unspecified
CPT/HCPCS: 36415; 80053; 80061; 83036; 83721; 84443; 85025

== ENCOUNTER 2023-04-03 15:53 | Outpatient (CLI) | payer OTHER | END 2023-04-03 15:54 | disposition critical access hospital (66) | LOC: EMS 15:53 | DX: S01.81XA Laceration without foreign body of other part of head, initial encounter (principal); M54.50 Low back pain, unspecified; W22.8XXA Striking against or struck by other objects, initial encounter; Y92.009 Unspecified place in unspecified non-institutional (private) residence as the place of occurrence of the external cause | CPT/HCPCS: A0425; A0429 ==

== ENCOUNTER 2023-04-23 03:16 | Outpatient (CLI) | payer OTHER | END 2023-04-23 03:17 | disposition critical access hospital (66) | LOC: EMS 03:16 | DX: R10.31 Right lower quadrant pain (principal); K46.9 Unspecified abdominal hernia without obstruction or gangrene | CPT/HCPCS: A0425; A0429 ==

== ENCOUNTER 2023-04-23 03:41 | Emergency (ER) | payer OTHER ==
--- NOTE | 2023-04-23 03:59 | ED Physician Documentation ---
PD HPI ABD PAIN - Stated complaint Stated Complaint: ABD PAIN, HERNIA - Chief complaint Chief Complaint: Abd Pain - History obtained from History obtained from: Patient - Additional information Additional information: 72yM with pmh ventral hernia p/w sudden onset pain waking him from sleep tonight a/w palpable hernia that he states went back in en route with ems. endorsing little to no pain at present. denies other issues. denies n/v/d fever, urinary sx or back pain. PD PAST MEDICAL HISTORY - Past Medical History Cardiovascular: None, Other Respiratory: Pneumonia, Shortness of breath, Other Neuro: None Endocrine/Autoimmune: HyPOthyroidism GI: None : Benign prostate hypertrophy, Frequency Psych: Anxiety Musculoskeletal: Other Derm: None - Past Surgical History Past Surgical History: Yes General: Appendectomy Ortho: Spine surgery, Other Neuro: Other HEENT: Cataracts, Rhinoplasty - Present Medications Home Medications: Ambulatory Orders Medication Instructions Recorded Confirmed Tamsulosin HCl [Flomax] 0.4 mg PO BID 01/01/22 01/14/23 Levothyroxine [Synthroid] 88 mcg PO DAILY 10/27/22 01/14/23 Amox/Clav 875/125 [Augmentin] 1 each PO Q12H #14 tablet 01/19/23 Azithromycin [Zithromax] 1 tab PO DAILY #4 tab 01/19/23 - Allergies Allergies/Adverse Reactions: Allergies Allergy/AdvReac Type Severity Reaction Status Date / Time No Known Drug Allergies Allergy Verified 04/03/23 16:30 - Social History Does the pt smoke?: No Smoking Status: Never smoker Does the pt drink ETOH?: No Does the pt have substance abuse?: No - Immunizations Immunizations are current?: Yes Immunizations: TDAP current <10years - POLST Patient has POLST: No PD ED PE NORMAL - Vitals Vital signs reviewed: Yes - General General: Alert and oriented X 3, No acute distress, Well developed/nourished - HEENT HEENT: Atraumatic, PERRL, EOMI - Neck Neck: Supple, no meningeal sign - Abdomen Abdomen: Non tender, Non distended, Other (ventral abdominal wall palpable weakening. no palpable hernia) Results - Vitals Vitals: Vital Signs - 24 hr 04/23/23 03:51 Temperature 36.3 C L Heart Rate 64 Respiratory 20 Rate Blood Pressure 129/103 H O2 Saturation 99 Oxygen O2 Source [With Activity] Room air O2 Source [Without Activity] Room air O2 Source Room air PD Medical Decision Making - ED course ED course: 72yM presents to the ED with ventral wall hernia he states he has had for 8 years. hernia apparently came out during the night but then reduced en route with ems. denies pain at present and declining pain meds. referral to surgery clinic provided. return precautions given. Departure - Departure Disposition: Home, Self Care Clinical Impression: Abdominal pain, Ventral hernia Condition: Stable Instructions: Hernia Follow-Up: Edmundo Tsang MD [Provider Admit Priv/Credential] - Comments: You were seen in the emergency department for abdominal wall hernia. It seems to have gone back in. If you are unable to get it back in after a couple hours or if you have severe pain / swelling / redness then return to the ED immediately. Referral was provided. You can check with a surgeon for possible repair. Please return to the emergency department if you have any new or worsening symptoms or other concerns.
[2023-04-23 04:29] VITALS: BP 133/83; O2SAT 97
== END 2023-04-23 04:24 | disposition home or self-care (01) ==
LOC: EDUNIT# → ED 03:41
DX: K43.9 Ventral hernia without obstruction or gangrene (principal)
CPT/HCPCS: 99283

== ENCOUNTER 2023-06-11 14:59 | Outpatient (CLI) | payer OTHER | END 2023-06-11 15:00 | disposition home or self-care (01) | LOC: LAB.N 14:59 | PROVIDERS: ATTEND Internal Medicine | DX: C61 Malignant neoplasm of prostate (principal) | CPT/HCPCS: 36415; 84153 ==

== ENCOUNTER 2023-08-26 11:00 | Outpatient (CLI) | payer OTHER ==
--- NOTE | 2023-08-26 13:20 | XRAY Report ---
PROCEDURE: Hips w/Pelvis 2-3V BL INDICATIONS: ARTHRITIS HIPS, BILATERAL TECHNIQUE: 3 view(s) of the hip were acquired. COMPARISON: X-ray hip 03/24/2022 FINDINGS: Bones: No fractures or dislocations. No suspicious bony lesions. The visualized pelvic ring appear s intact. Right femoral pinning is well as right sacral ORIF. Hardware is intact without evidence of hardware fracture or periprosthetic lucency to suggest loosening. Moderate arthritic changes are pre sent within the right hip. Degenerative changes are present within the lower lumbar spine. Soft tissues: No suspicious soft tissue calcifications or masses. IMPRESSION: Postsurgical and arthritic changes as above. Overall appearance is relatively stable compared to prio r exam. Reviewed by: Susanna Urena MD on 08/26/2023 1:19 PM PST Approved by: Susanna Urena MD on 08/26/2023 1:19 PM PST Station ID: [id number]
== END 2023-08-26 11:01 | disposition home or self-care (01) ==
LOC: DI.N 11:00
PROVIDERS: ATTEND Internal Medicine
DX: M16.11 Unilateral primary osteoarthritis, right hip (principal); M47.816 Spondylosis without myelopathy or radiculopathy, lumbar region; Z96.89 Presence of other specified functional implants

== ENCOUNTER 2023-09-15 08:51 | Outpatient (CLI) | payer OTHER ==
[2023-09-15 12:23] LABS: EOSINOPHILS # (AUTO) 0.2 10^3/uL (0.0-0.7); EOSINOPHILS % (AUTO) 5.8 %; HCT - HEMATOCRIT 47.7 % (42.0-52.0); HGB - HEMOGLOBIN 15.1 g/dL (14.0-18.0); LYMPHOCYTES # (AUTO) 1.2 10^3/uL (1.5-3.5); LYMPHOCYTES % (AUTO) 28.5 %; MEAN CORPUSCULAR HEMOGLOBIN 31.8 pg (27.0-31.0); MEAN CORPUSCULAR HGB CONC 31.7 g/dL (32.0-36.0); MEAN CORPUSCULAR VOLUME 100.4 fL (80.0-94.0); MEAN PLATELET VOLUME 9.7 fL (7.4-11.4); MONOCYTES # (AUTO) 0.4 10^3/uL (0.0-1.0); MONOCYTES % (AUTO) 9.6 %; NEUTROPHILS # (AUTO) 2.3 10^3/uL (1.5-6.6); NEUTROPHILS % (AUTO) 54.9 %; PLT - PLATELET COUNT 224 10^3/uL (130-450); RED BLOOD COUNT 4.75 10^6/uL (4.70-6.10); RED CELL DISTRIBUTION WIDTH 13.1 % (12.0-15.0); WHITE BLOOD COUNT 4.2 x10^3/uL (4.8-10.8)
[2023-09-15 12:35] LABS: ALBUMIN/GLOBULIN RATIO 1.4 (1.0-2.2); ALKALINE PHOSPHATASE 90 IU/L (42-121); ALT ALANINE AMINOTRANSFERASE 17 IU/L (10-60); AST ASPARTATE AMINOTRANSFERASE 19 IU/L (10-42); BILIRUBIN,TOTAL 0.6 mg/dL (0.2-1.0); BUN - BLOOD UREA NITROGEN 15 mg/dL (6-20); CALCIUM 9.3 mg/dL (8.5-10.3); CARBON DIOXIDE - CO2 29 mmol/L (21-32); CHLORIDE 106 mmol/L (101-111); CHOL/HDL RATIO 2.8 (<5.0); CHOLESTEROL 199 mg/dL; CREATININE 0.9 mg/dL (0.6-1.3); GFR - MDRD 82 (>89); GLUCOSE 96 mg/dL (74-104); HDL CHOLESTEROL 70 mg/dL; LDL CHOLESTEROL,CALCULATED 92 mg/dL; LDL/HDL RATIO 1.3 (<3.6); POTASSIUM 4.3 mmol/L (3.5-4.5); SODIUM 139 mmol/L (135-145); TOTAL PROTEIN 6.8 g/dL (6.4-8.9); TRIGLYCERIDES 185 mg/dL (48-352); VLDL CHOLESTEROL 37 mg/dL
[2023-09-15 12:46] LABS: ESTIMATED AVERAGE GLUCOSE 105 mg/dL (70-100); HEMOGLOBIN A1c% 5.3 % (4.27-6.07)
[2023-09-15 12:48] LABS: THYROID STIMULATING HORMONE 2.95 uIU/mL (0.34-5.60)
== END 2023-09-15 08:52 | disposition home or self-care (01) ==
LOC: LAB.N 08:51
PROVIDERS: ATTEND Internal Medicine
DX: R73.01 Impaired fasting glucose (principal); C61 Malignant neoplasm of prostate; E03.9 Hypothyroidism, unspecified
CPT/HCPCS: 36415; 80053; 80061; 83036; 83721; 84153; 84443; 85025

== ENCOUNTER 2023-10-11 07:15 | Outpatient (CLI) | payer OTHER ==
--- NOTE | 2023-10-11 14:04 | Ultrasound Report ---
PROCEDURE: Carotid Doppler Complete INDICATIONS: FACIAL NERVE DISORDER TECHNIQUE: Color and pulse Doppler interrogation was performed of both carotid systems, with image documentation and velocity measurements. COMPARISON: None. FINDINGS: Right side: Brachial blood pressure: 140 mm Hg. Common carotid artery peak systolic velocity: 50 cm/sec. Internal carotid artery peak systolic velocity: 72 cm/sec. Internal carotid artery end diastolic velocity: 37 cm/sec. External carotid artery peak systolic velocity: 54 cm/sec. ICA/CCA peak systolic ratio: 1.4 . Escobar scale imaging description: Mild atherosclerotic plaque. Percent internal carotid artery stenosis: Less than 50 percent stenosis. Vertebral artery: Flow direction is antegrade. Left side: Brachial blood pressure: 128 mm Hg. Common carotid artery peak systolic velocity: 71 cm/sec. Internal carotid artery peak systolic velocity: 77 cm/sec. Internal carotid artery end diastolic velocity: 34 cm/sec. External carotid artery peak systolic velocity: 51 cm/sec. ICA/CCA peak systolic ratio: 1 . Escobar scale imaging description: Mild atherosclerotic plaque. Percent internal carotid artery stenosis: Less than 50 percent stenosis. Vertebral artery: Flow direction is antegrade. IMPRESSION: 1. In the right internal carotid artery, there is less than 50 percent stenosis based on peak systoli c velocity criteria. 2. In the left internal carotid artery, there is less than 50 percent stenosis based on peak systolic velocity criteria. 3. Antegrade blood flow within the right vertebral artery. 4. Antegrade blood flow within the left vertebral artery. The estimate of stenosis included in the report of the imaging study was calculated using the [facility]-end orsed standards of carotid artery stenosis. Reviewed by: Bennett Yañez MD on 10/11/2023 2:02 PM PDT Approved by: Bennett Yañez MD on 10/11/2023 2:02 PM PDT Station ID: [id number]
== END 2023-10-11 07:16 | disposition home or self-care (01) ==
LOC: DI 07:15
PROVIDERS: ATTEND Internal Medicine
DX: S09.93XD Unspecified injury of face, subsequent encounter (principal); G51.9 Disorder of facial nerve, unspecified
CPT/HCPCS: 93880